=== PATIENT | male | born 1955 | race Hispanic/Latino ===

== ENCOUNTER 2020-09-23 11:28 | Emergency (ER) | payer MEDICARE, SELFPAY ==
--- NOTE | 2020-09-23 12:25 | EDPHYS ---
Physician Documentation [facility] Name: Terrell Hoover Age: 65 yrs Sex: Male : 1955 Arrival Date: 09/23/2020 Time: 11:30 Bed 20 Private MD: ED Physician Ria Bobby HPI: 09/23 12:19 This 65 yrs old Male presents to ER via Ambulatory with complaints of Rash. ma2 12:19 The patient's rash thought to be caused by allergies. The rash can be described as ma2 crusted, erythematous. Onset: The symptoms/episode began/occurred gradually, 6 day(s) ago. Associated signs and symptoms: Pertinent positives: Pertinent negatives: difficulty breathing, fever, nausea. Severity of symptoms: At their worst the symptoms were very mild in the emergency department the symptoms are unchanged. The patient has not experienced similar symptoms in the past. Historical: - Allergies: 11:52 No Known Allergies; jd3 - PMHx: 11:52 Diabetes - IDDM; jd3 - PSHx: 11:52 back; jd3 - Immunization history:: Adult Immunizations up to date. - Social history:: Smoking status: unknown Patient/guardian denies using alcohol, street drugs, The patient lives with family. - Family history:: not pertinent. ROS: 12:23 Constitutional: Negative for fever, chills, and weight loss. ma2 12:23 All other systems are negative. Exam: 12:23 Constitutional: This is a well developed, well nourished patient who is awake, alert, ma2 and in no acute distress. Chest/axilla: Normal chest wall appearance and motion. Nontender with no deformity. No lesions are appreciated. Cardiovascular: Regular rate and rhythm with a normal S1 and S2. No gallops, murmurs, or rubs. Normal PMI, no JVD. No pulse deficits. Respiratory: Lungs have equal breath sounds bilaterally, clear to auscultation and percussion. No rales, rhonchi or wheezes noted. No increased work of breathing, no retractions or nasal flaring. Abdomen/GI: Soft, non-tender, with normal bowel sounds. No distension or tympany. No guarding or rebound. No evidence of tenderness throughout. Skin: diffuse crusting hives with itching, otherwise skin is Warm, dry with normal turgor. Normal color, no evidence of cellulitis. MS/ Extremity: Pulses equal, no cyanosis. Neurovascular intact. Full, normal range of motion. Neuro: Awake and alert, GCS 15, oriented to person, place, time, and situation. Cranial nerves II-XII grossly intact. Motor strength 5/5 in all extremities. Sensory grossly intact. Cerebellar exam normal. Normal gait. Vital Signs: 11:52 BP 120 / 66; Pulse 70; Resp 16 S; Temp 97.4(TE); Pulse Ox 98% on R/A; Weight 77.11 kg jd3 (R); Height 5 ft. 7 in. (170.18 cm) (R); Pain 6/10; 11:52 Body Mass Index 26.63 (77.11 kg, 170.18 cm) jd3 MDM: 12:07 Patient medically screened. ma2 12:23 Differential diagnosis: impetigo, varicella, allergic reaction, parasite infection. ma2 Data reviewed: vital signs, nurses notes. Counseling: I had a detailed discussion with the patient and/or guardian regarding: the historical points, exam findings, and any diagnostic results supporting the discharge/admit diagnosis, the presence of at least one elevated blood pressure reading (>120/80) during this emergency department visit, the need for outpatient follow up. Response to treatment: the patient's symptoms have markedly improved after treatment. Administered Medications: 12:25 Drug: Benadryl (diphenhydrAMINE) 50 mg Route: IM; Site: right deltoid; zb 12:30 Drug: predniSONE 40 mg Route: PO; zb Disposition: 09/23/20 12:24 Discharged to Home. Impression: Rash and other nonspecific skin eruption. - Condition is Stable. - Discharge Instructions: Rash, [id number]. - Prescriptions for Benadryl 25 mg Oral Capsule - take 1 capsule by ORAL route every 6 hours As needed; 30 tablet. Medrol (Familia) 4 mg Oral Tablets, Dose Pack - take 1 tablet by ORAL route as directed - follow package instructions; 1 packet. Pepcid 20 mg Oral Tablet - take 1 tablet by ORAL route once daily; 20 tablet. - Medication Reconciliation Form, Thank You Letter, Antibiotic Education, Prescription Opioid Use form. - Follow up: Private Physician; When: Tomorrow; Reason: Continuance of care. 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 Impression: Rash and other nonspecific skin zb eruption. Condition is Stable. Forms are Medication Reconciliation Form, Thank You Letter, Antibiotic Education, Prescription Opioid Use. Follow up: Private Physician; When: Tomorrow; Reason: Continuance of care. ma2
--- NOTE | 2020-09-23 12:25 | ER ---
Nurse's Notes [facility] Name: Terrell Hoover Age: 65 yrs Sex: Male : 1955 Arrival Date: 09/23/2020 Time: 11:30 Bed 20 Private MD: Diagnosis: Rash and other nonspecific skin eruption Presentation: 09/23 11:51 Chief complaint: Patient states: "I have a rash on my stomach and chest area. I ate jd3 shrimp the other day, but I don't know what is causing this.". Coronavirus screen: At this time, the client does not indicate any symptoms associated with coronavirus-19. Ebola Screen: Patient negative for fever greater than or equal to 101.5 degrees Fahrenheit, and additional compatible Ebola Virus Disease symptoms. Initial Sepsis Screen: Does the patient meet any 2 criteria? No. Patient's initial sepsis screen is negative. Does the patient have a suspected source of infection? No. Patient's initial sepsis screen is negative. Risk Assessment: Do you want to hurt yourself or someone else? Patient reports no desire to harm self or others. Onset of symptoms was September 18, 2020. 11:51 Method Of Arrival: Ambulatory jd3 11:51 Acuity: JORDYN 4 jd3 11:52 Note my doctor called in this cream yesterday, but it has not done anything. jd3 Historical: - Allergies: 11:52 No Known Allergies; jd3 - PMHx: 11:52 Diabetes - IDDM; jd3 - PSHx: 11:52 back; jd3 - Immunization history:: Adult Immunizations up to date. - Social history:: Smoking status: unknown Patient/guardian denies using alcohol, street drugs, The patient lives with family. - Family history:: not pertinent. Screenin:06 Abuse screen: Denies threats or abuse. Denies injuries from another. Nutritional zb screening: No deficits noted. Tuberculosis screening: No symptoms or risk factors identified. Fall Risk None identified. Assessment: 12:11 General: Appears in no apparent distress. Behavior is calm, cooperative, appropriate zb for age. Pain: Complains of pain in back and chest Pain currently is 1 out of 10 on a pain scale. Neuro: Level of Consciousness is awake, alert, obeys commands, Oriented to person, place, time, situation. Cardiovascular: Patient's skin is warm and dry. Respiratory: Airway is patent Respiratory effort is even, unlabored, Respiratory pattern is regular, symmetrical. Derm: Skin is red, Rash noted that is itchy, urticaria, dry. Musculoskeletal: Range of motion: intact in all extremities. 12:33 Reassessment: d/c pending completion of 15 injection time. zb Vital Signs: 11:52 BP 120 / 66; Pulse 70; Resp 16 S; Temp 97.4(TE); Pulse Ox 98% on R/A; Weight 77.11 kg jd3 (R); Height 5 ft. 7 in. (170.18 cm) (R); Pain 6/10; 11:52 Body Mass Index 26.63 (77.11 kg, 170.18 cm) jd3 ED Course: 11:30 Patient arrived in ED. ds1 11:52 Triage completed. jd3 11:53 Arm band placed on. jd3 12:04 Corin hSin, DARELL is Primary Nurse. 12:06 Primary Nurse role handed off by Corin Shin RN zb 12:06 Gely Yusuf RN is Primary Nurse. zb 12:06 Patient has correct armband on for positive identification. Pulse ox on. NIBP on. Door zb closed. Noise minimized. 12:07 Ria Bobby MD is Attending Physician. jordan Administered Medications: 12:25 Drug: Benadryl (diphenhydrAMINE) 50 mg Route: IM; Site: right deltoid; zb 12:30 Drug: predniSONE 40 mg Route: PO; zb Outcome: 12:24 Discharge ordered by . jordan 13:06 Patient left the ED. zb Signatures: Maria Luz Talbert ds1 Corin Shin, Pablo Sutherland RN, RN RN jRia Blandon MD MD ma2 Brown, Zipporah, RN RN zb
[2020-09-23] MEDS ORDERED: DIPHENHYDRAMINE 50 MG/ML VIAL ONE (12:45)
[2020-09-23] MEDS ORDERED: predniSONE 20 MG TAB ONE (12:45)
[2020-09-23 13:13] VITALS: BP 120/66; TEMP 97.4; O2SAT 98
== END 2020-09-23 13:06 | disposition home or self-care (01) ==
LOC: ER 11:28
DX: R21 Rash and other nonspecific skin eruption (principal)
CPT/HCPCS: 96372; 99283; J1200; J7512

== ENCOUNTER 2021-10-03 04:36 | Emergency (ER) | payer MEDICARE ==
--- NOTE | 2021-10-03 06:31 | EDPHYS ---
Physician Documentation [facility] Name: Terrell Hoover Age: 66 yrs Sex: Male : 1955 Arrival Date: 10/03/2021 Time: 04:38 Bed 26 Private MD: ED Physician Jonathan De La Torre Historical: - Allergies: 10/03 04:53 No Known Allergies; bb - Home Meds: 04:53 Metformin Oral [Active]; Lisinopril Oral [Active]; bb - PMHx: 04:53 Diabetes mellitus; bb - PSHx: 04:53 back surgery; bb - Immunization history:: Moderna x 3. - Social history:: Smoking status: Patient denies any tobacco usage or history of. Vital Signs: 04:51 BP 145 / 73; Pulse 80; Resp 18 S; Temp 99.6(O); Pulse Ox 97% on R/A; Weight 85.73 kg bb (R); Height 5 ft. 7 in. (170.18 cm) (R); 06:28 BP 130 / 62; Pulse 74; Resp 18; Pulse Ox 98% on R/A; ll3 04:51 Body Mass Index 29.60 (85.73 kg, 170.18 cm) bb MDM: 06:30 Patient medically screened. kdr 10/03 04:55 Order name: Strep; Complete Time: 06:28 bb 10/03 04:55 Order name: XRAY Chest (1 view) bb 10/03 05:18 Order name: Influenza Screen (A ; Complete Time: 06:28 EDMS 10/03 05:18 Order name: SARS-COV-2 RT PCR; Complete Time: 06:28 EDMS 10/03 06:02 Order name: Throat Culture EDMS Administered Medications: No medications were administered Disposition Summary: 10/03/21 06:30 Discharge Ordered Location: Home kdr Problem: new kdr Symptoms: have improved kdr Condition: Stable kdr Diagnosis - SARS-associated coronavirus as the cause of diseases classified elsewhere kdr Followup: kdr - With: Private Physician - When: 2 - 3 days - Reason: If symptoms return, Further diagnostic work-up, Recheck today's complaints, Continuance of care, Re-evaluation by your physician Discharge Instructions: - Discharge Summary Sheet kdr - Form - Excuse from Work, School, or Physical Activity kdr - COVID-19 kdr - Things to Know about the COVID-19 Pandemic - [facility] kdr - 10 Things You Can Do to Manage Your COVID-19 Symptoms at Home - [facility] kdr - Viral Illness, Adult kdr - COVID-19: Quarantine vs. Isolation - [facility] kdr - Prevent the Spread of COVID-19 if You Are Sick - [facility] kdr Forms: - Medication Reconciliation Form kdr - Thank You Letter kdr Addendum: 10/04/2021 08:06 Addendum: Chief complaint: Sore throat, HPI: Patient complains of a sore throat cough k dr for 2 days. Patient is otherwise healthy. Review of systems: Constitutional: No fever chills or weight loss, eyes: No visual changes or complaints, neck: No pain or injury, cardiovascular: No chest pain or palpitations, she does tire: No shortness of breath, cough or congestion, abdomen: No nausea, vomiting, diarrhea or pain back: No pain or injury, : No pain or bleeding, musculoskeletal/extremities: No pain, injury, swelling or tingling, skin: No lacerations, pain, injury, skin turgor good, logical: Cranial nerves grossly intact and no other deficits noted, psychiatric: Appropriate for age, allergy/immunology: No rashes or other signs or symptoms, Endocrinology: No evidence of polyuria, polydipsia, temperature control issues or other relevant signs and symptoms, exam: Constitutional: Developed well-nourished male in no acute distress, head/face: No injury, pain or deformity, eyes: PERRLA, ENT: No pain, injury or bleeding, mild sore throat, exudate, neck: No pain, injury or deformity, full range of motion, breast/axilla: No pain, injury or deformity, cardiovascular: No rubs, gallops, murmurs, regular rate, respiratory: Clear to auscultation bilaterally, regular rate, abdomen/GI: Soft, nontender, bowel sounds present all quadrants and normal, back: No injury or deformity, full range of motion, musculoskeletal/extremities: No injury or deformity, full range of motion, distal pulses good and equal, skin: No rashes, ecchymosis skin turgor good, neurologic: Cranial nerves grossly intact, no other neurologic deficits noted, psychiatric: Appropriate for age, no SI/HI, no depression decision making, all vital signs and nursing notes reviewed. Patient was counseled on the results of the laboratory tests and need for follow-up. Patient was discharged in stable condition. Patient was happy with the care provided and the plan for discharge and follow-up.. Signatures: Dispatcher [employer] Jonathan Velez MD MD kdr Ballard, Brenda RN RN bb Corrections: (The following items were deleted from the chart) 10/03 04:54 04:53 PMHx: Diabetes - IDDM; bb bb 05:18 04:56 COVID-19/FLU A+B+MOL.LAB.BRZ ordered. EDMS EDMS
--- NOTE | 2021-10-03 06:31 | ER ---
Nurse's Notes [facility] Name: Terrell Hoover Age: 66 yrs Sex: Male : 1955 Arrival Date: 10/03/2021 Time: 04:38 Bed 26 Private MD: Diagnosis: SARS-associated coronavirus as the cause of diseases classified elsewhere Presentation: 10/03 04:51 Chief complaint: Patient states: he has a sore throat and cough for 2 days. Coronavirus bb screen: cough unrelated to allergies, sore throat, Client presents with at least one sign or symptom that may indicate coronavirus-19. Standard/surgical mask placed on the client. Ebola Screen: No symptoms or risks identified at this time. Initial Sepsis Screen: Does the patient meet any 2 criteria? No. Patient's initial sepsis screen is negative. Does the patient have a suspected source of infection? No. Patient's initial sepsis screen is negative. Risk Assessment: Do you want to hurt yourself or someone else? Patient reports no desire to harm self or others. Onset of symptoms was October 01, 2021. 04:51 Method Of Arrival: Ambulatory bb 04:51 Acuity: JORDYN 3 bb Historical: - Allergies: 04:53 No Known Allergies; bb - Home Meds: 04:53 Metformin Oral [Active]; Lisinopril Oral [Active]; bb - PMHx: 04:53 Diabetes mellitus; bb - PSHx: 04:53 back surgery; bb - Immunization history:: Moderna x 3. - Social history:: Smoking status: Patient denies any tobacco usage or history of. Screenin:28 Abuse screen: Denies threats or abuse. Nutritional screening: No deficits noted. ll3 Tuberculosis screening: No symptoms or risk factors identified. Fall Risk None identified. Assessment: 05:15 General: Appears uncomfortable, Behavior is calm, cooperative. Pain: Complains of pain ll3 in left aspect of posterior pharynx and right aspect of posterior pharynx. Neuro: Level of Consciousness is awake, alert, obeys commands, Oriented to person, place, time, situation. Respiratory: Airway is patent Respiratory effort is even, unlabored, Respiratory pattern is regular, symmetrical, Breath sounds are clear bilaterally. Respiratory: Reports cough that is. EENT: Throat is pink. Derm: Skin is pink, warm \T\ dry. 06:27 Reassessment: No changes from previously documented assessment. Patient and/or family ll3 updated on plan of care and expected duration. Pain level reassessed. Patient is alert, oriented x 3, equal unlabored respirations, skin warm/dry/pink. Vital Signs: 04:51 BP 145 / 73; Pulse 80; Resp 18 S; Temp 99.6(O); Pulse Ox 97% on R/A; Weight 85.73 kg bb (R); Height 5 ft. 7 in. (170.18 cm) (R); 06:28 BP 130 / 62; Pulse 74; Resp 18; Pulse Ox 98% on R/A; ll3 04:51 Body Mass Index 29.60 (85.73 kg, 170.18 cm) bb ED Course: 04:38 Patient arrived in ED. bp1 04:53 Triage completed. bb 04:53 Arm band placed on Patient placed in an exam room, on a stretcher, on pulse oximetry. bb Labs ordered per protocol. 05:00 Jonathan De La Torre MD is Attending Physician. kdr 05:09 XRAY Chest (1 view) In Process Unspecified. EDMS 05:56 Malik Jose, DARELL is Primary Nurse. ll3 06:28 Patient has correct armband on for positive identification. Bed in low position. Call ll3 light in reach. Side rails up X 1. 06:28 No provider procedures requiring assistance completed. ll3 06:36 Patient did not have IV access during this emergency room visit. ll3 Administered Medications: No medications were administered Medication: 06:28 VIS not applicable for this client. ll3 Outcome: 06:30 Discharge ordered by . kdr 06:36 Discharged to home ambulatory. ll3 06:36 Condition: stable 06:36 Discharge instructions given to patient, Instructed on discharge instructions, follow up and referral plans. Demonstrated understanding of instructions, follow-up care. 06:37 Patient left the ED. ll3 Signatures: Dispatcher [employer] EDMS Jonathan De La Torre MD MD kdr Ballard, Brenda, RN RN bb [place] Winn bp1 Malik Jose RN RN ll3 Corrections: (The following items were deleted from the chart) 04:54 04:53 PMHx: Diabetes - IDDM; bb bb
[2021-10-03 06:44] VITALS: TEMP 99.6
[2021-10-03 06:46] VITALS: BP 130/62; O2SAT 98
--- NOTE | 2021-10-03 11:56 | RAD REPORT ---
EXAM DESCRIPTION: RAD - Chest Single View - 10/03/2021 5:08 am CLINICAL HISTORY: The patient is 66 years old and is Male; COUGH TECHNIQUE: Frontal view of the chest. COMPARISON: No relevant prior studies available. FINDINGS: Lungs: Mildly prominent interstitial and vascular markings. No consolidation. Pleural space: Unremarkable. No pneumothorax. Heart: Unremarkable. Mediastinum: Unremarkable. Bones/joints: Unremarkable. IMPRESSION: Mildly prominent interstitial and vascular markings. No consolidation. Electronically signed by: Surjit Donohue MD 10/03/2021 5:22 AM CDT Due to temporary technical issues with the PACS/Fluency reporting system, reports are being signed by the in house radiologists without. review as a courtesy to insure prompt reporting. The interpreting radiologist is fully responsible for the content of the report
== END 2021-10-03 06:37 | disposition home or self-care (01) ==
LOC: ER 04:36
DX: U07.1 COVID-19 (principal); E11.8 Type 2 diabetes mellitus with unspecified complications
CPT/HCPCS: 87070; 87081; 87804 ×2; 71045; 99283; U0003

== ENCOUNTER 2022-06-04 21:35 | Emergency (ER) | payer MEDICARE ==
--- OUTSIDE RECORDS SUMMARY | 2022-06-04 21:38 | XMS REPORT | Continuity of Care Document ---
:1955 Author Organization [facility] t Address [address] [facility] [address] [place] [address] Care Team Providers Name Role Phone Unavailable Unavailable Unavailable Problems This patient has no known problems. Allergies, Adverse Reactions, Alerts This patient has no known allergies or adverse reactions. Medications This patient has no known medications. Procedures This patient has no known procedures. Encounters Start End Encounter Admission Attending Care Care Encounter Source Date/Time Date/Time Type Type Clinicians Facility Department ID 2022-05-10 2022-05-10 Outpatient [facility] [id number] Kwame 11:40:40 11:40:40 [id number] F Thomas 2022-02-07 2022-02-07 Outpatient [facility] [id number] Kwame 11:37:15 11:37:15 [id number] F Thomas 2022-01-27 2022-01-27 Outpatient [facility] [id number] Kwame 17:18:49 17:18:49 [id number] F Thomas 2022-01-20 2022-01-20 Outpatient [facility] [id number] Kwame 08:24:12 08:24:12 [id number] F Thomas Results Test Description Test Time Test Comments Results Result Comments Source COMPREHENSIVE METABOLIC PANEL 2022-05-12 04:25:35 Test Item Value Reference Range Interpretation Comme nts GLUCOSE (test code = 2217) 70 MG/DL 70-99 BUN (test code = 2208) 17 MG/DL 8-23 CREATININE (test code = 0.73 MG/DL 0.80-1.40 L 2213) eGFR (2020 CKD-EPI) (test 100 ML/MIN/1.73 >60 code = 59903) CALC BUN/CREAT (test code = 23 RATIO 6-28 2234) SODIUM (test code = 2231) 139 MEQ/L 133-146 POTASSIUM (test code = 2228) 5.1 MEQ/L 3.5-5.4 CHLORIDE (test code = 2215) 103 MEQ/L 95-107 CARBON DIOXIDE (test code = 20 MEQ/L 2205) CALCIUM (test code = 2209) 9.9 MG/DL 8.5-10.5 PROTEIN, TOTAL (test code = 7.8 G/DL 6.1-8.3 2228) ALBUMIN (test code = 2201) 4.9 G/DL 3.5-5.2 CALC GLOBULIN (test code = 2.9 G/DL 1.9-3.7 2239) CALC A/G RATIO (test code = 1.7 RATIO 1.0-2.6 2233) BILIRUBIN, TOTAL (test code 0.5 MG/DL See_Comment [Automated message] The = 2206) system which ge nerated this result transmit radha reference range : <=1.2. The reference range was not used to interpr et this result as kevin l/abnormal. ALKALINE PHOSPHATASE (test 61 U/L 40-125 code = 2204) AST (test code = 2218) 22 U/L 9-50 ALT (test code = 2219) 26 U/L 5-50 LIPID [id number] 04:25:35 Test Item Value Reference Range Interpretation Comments CHOLESTEROL (test 158 MG/DL <200 code = 2210) TRIGLYCERIDES (test 77 MG/DL <150 code = 2232) HDL CHOLESTEROL (test 53 MG/DL >39 code = 2220) CALC LDL CHOL (test 88 MG/DL <100 NOTE: C ALCULATED LDL code = 2237) IS BASED ON HALI-SHIRLEY METHOD WHICHINCLUDES ADJUSTABLE TRIGLYCERIDE:VL DL CHOLESTEROL RAT IO.THIS FACTOR VARIES B Y MEASURED TRIGLY CERIDE AND NON-HDLCHOL ESTEROL CONCENTRATIONS WITH INCREASED CALCU LATED LDL SEENIN HIGH ER TRIGLYCERIDE OR LOWER NON-HDL SPECIME NS. FOR MOREINFORMATION , SEE CLIENT ANNOUNCE MENT AT [email or web address] [email or web address] LDL/HDL 1.66 RATIO <3.55 [facility] has important (test code = 2238) pathology staff changes effecti ve 06/04/2022. New pathology staff will provide uninter rupted, excellent patie nt care and clinical consultation. S ee URL: [email or web address]. UNLES S OTHERWISE INDIC ATED, ALL TESTING PER FORMED AT CL[facility]ICAL [facility], I [place]. [address] [place] [address] CLIA: [id number], CAP: HEMOGLOBIN [id number] 03:06:51 Test Item Value Reference Range Interpretation Comments HEMOGLOBIN A1c (test 8.4 % 4.2-5.6 H AMERIC AN DIABETES code = 05642) ASSOCIATION IDELINES FOR HGB A1C: PREDIABETES/INC REASED RISK . . . . . . . 5.7 -6.4% DIAGNOSIS OF DI ABETES . . . . . . . . . >=6 .5% WITH CONFIRMATION OR APPROPRIATE SYMPTOMS NOTE: ASSAY MAY BE AFFECTED BY HEMOGLOBINOPATH IES (SICKLE CELL ANEMIA, S- C DISEASE, OTHERS) OR SARATH FICIALLY LOWERED BY DECR EASED RED CELL SURVIVAL ( HEMOLYTIC ANEMIAS, BLOOD LOSS, ETC.). CONSIDER ALTERN ATE TESTING OR LABORATORY C ONSULTATION. HEMOGLOBIN [id number] 05:14:47 Test Item Value Reference Range Interpretation Comments HEMOGLOBIN A1c (test 8.0 % 4.2-5.6 H AMERIC AN DIABETES code = 30204) ASSOCIATION IDELINES FOR HGB A1C: PREDIABETES/INC REASED RISK . . . . . . . 5.7 -6.4% DIAGNOSIS OF DI ABETES . . . . . . . . . >=6 .5% WITH CONFIRMATION OR APPROPRIATE SYMPTOMS NOTE: ASSAY MAY BE AFFECTED BY HEMOGLOBINOPATH IES (SICKLE CELL ANEMIA, S- C DISEASE, OTHERS) OR SARATH FICIALLY LOWERED BY DECR EASED RED CELL SURVIVAL ( HEMOLYTIC ANEMIAS, BLOOD LOSS, ETC.). CONSIDER ALTERN ATE TESTING OR LABORATORY C ONSULTATION. UNLESS OTHERWIS E INDICATED, ALL TESTING PER FORMED ATCLINICAL PATH [facility], I [place]. [address] [place] [address] LABORATORY DIRE CTOR: EV LYNN M.D. CLIA NUMBER [id number] [place]. [id number] ALBUMIN/CREATININE RATIO, URINE, [id number] 04:17:25 Test Item Value Reference Range Interpretation Comments CREATININE, URINE, 255.5 MG/DL NOT ESTAB RANDOM (test code = 2072) ALBUMIN, URINE, 2.7 MG/DL NOT ESTAB RANDOM (test code = 37070) CALC ALBUMIN/CREAT, 11 MG/G <30 Note: RND (test code = Albumin/Cre atinine 97130) ratio reference interval reflec ts ADA and NKF guideli no. HEMOGLOBIN [id number] 09:49:57 Test Item Value Reference Range Interpretation Comments HEMOGLOBIN A1c (test 7.6 % 4.2-5.6 H AMERIC AN DIABETES code = 76270) ASSOCIATION IDELINES FOR HGB A1C: PREDIABETES/INC REASED RISK . . . . . . . 5.7 -6.4% DIAGNOSIS OF DI ABETES . . . . . . . . . >=6 .5% WITH CONFIRMATION OR APPROPRIATE SYMPTOMS NOTE: ASSAY MAY BE AFFECTED BY HEMOGLOBINOPATH IES (SICKLE CELL ANEMIA, S- C DISEASE, OTHERS) OR SARATH FICIALLY LOWERED BY DECR EASED RED CELL SURVIVAL ( HEMOLYTIC ANEMIAS, BLOOD LOSS, ETC.). CONSIDER ALTERN ATE TESTING OR LABORATORY C ONSULTATION. COMPREHENSIVE METABOLIC [id number] 04:03:56 Test Item Value Reference Range Interpretation Comments GLUCOSE (test code = 149 MG/DL 70-99 H 2216) BUN (test code = 23 MG/DL 8-23 2207) CREATININE (test 0.78 MG/DL 0.80-1.40 L code = 2214) eGFR (2020 CKD-EPI) 98 ML/MIN/1.73 >60 (test code = 02805) CALC BUN/CREAT (test 29 RATIO 6-28 H code = 2235) SODIUM (test code = 140 MEQ/L 006-460 8076) POTASSIUM (test code 4.1 MEQ/L 3.5-5.4 = 2227) CHLORIDE (test code 103 MEQ/L 95-107 = 2215) CARBON DIOXIDE (test 23 MEQ/L 19-31 code = 2206) CALCIUM (test code = 9.6 MG/DL 8.5-10.5 2208) PROTEIN, TOTAL (test 7.1 G/DL 6.1-8.3 code = 222) ALBUMIN (test code = 4.4 G/DL 3.5-5.2 2200) CALC GLOBULIN (test 2.7 G/DL 1.9-3.7 code = 2240) CALC A/G RATIO (test 1.6 RATIO 1.0-2.6 code = 2234) BILIRUBIN, TOTAL 0.5 MG/DL See_Comment [Automated message] (test code = 2207) The syste m which generated this result transmit radha reference range : <=1.2. The refe rence range was not u sed to interpret th is result as normal/abnormal . ALKALINE PHOSPHATASE 50 U/L 40-125 (test code = 2203) AST (test code = 20 U/L 9-50 2217) ALT (test code = 24 U/L 5-50 2218) LIPID [id number] 04:03:56 Test Item Value Reference Range Interpretation Comments CHOLESTEROL (test 149 MG/DL <200 code = 2210) TRIGLYCERIDES (test 137 MG/DL <150 code = 2232) HDL CHOLESTEROL (test 47 MG/DL >39 code = 2220) CALC LDL CHOL (test 78 MG/DL <100 NOTE: C ALCULATED LDL code = 2237) IS BASED ON HALI-SHIRLEY METHOD WHICHINCLUDES ADJUSTABLE TRIGLYCERIDE:VL DL CHOLESTEROL RAT IO.THIS FACTOR VARIES B Y MEASURED TRIGLY CERIDE AND NON-HDLCHOL ESTEROL CONCENTRATIONS WITH INCREASED CALCU LATED LDL SEENIN HIGH ER TRIGLYCERIDE OR LOWER NON-HDL SPECIME NS. FOR MOREINFORMATION , SEE CLIENT ANNOUNCE MENT AT [email or web address] LDL/HDL 1.66 RATIO <3.55 UNLESS O THERWISE (test code = 2238) INDICATED , ALL TESTING PERFORMED [facility], [facility]. [address] [place] [address] [facility] DIRECTOR: EV LYNN M.D. CLIA NUMBER [id number] CAP ACCREDITATION N O. [id number]
[2022-06-04 22:04] LABS: Urine Blood Negative (Negative); Urine Glucose 2+ (Negative); Urine Protein Negative (Negative); Urine Specific Gravity 1.025 (1.005-1.030)
[2022-06-04] MEDS ORDERED: FAMOTIDINE 20 MG/2 ML VIAL IV ONE (22:34)
[2022-06-04] MEDS ORDERED: NA CHLORIDE 0.9% 1,000 ML ONE (22:34)
[2022-06-04] MEDS ORDERED: ONDANSETRON 4 MG/2 ML VIAL ONE (22:34)
[2022-06-04] MEDS ORDERED: MORPHINE 4 MG/ML SYR ONE (22:34)
[2022-06-04 23:02] LABS: Albumin 4.1 g/dL (3.4-5.0); Bilirubin Total 0.6 mg/dL (0.2-1.0); Potassium 4.6 mmol/L (3.5-5.1); Protein, Total 8.1 g/dL (6.4-8.2)
[2022-06-04 23:04] LABS: Hematocrit 42.5 % (39.6-49.0); Lymphocytes % 31.5 % (15.3-44.8); MCV 89.2 fL (80-100); MPV 8.8 fL (7.6-11.3); RBC Red Blood Cell Count 4.77 M/uL (4.33-5.43)
--- NOTE | 2022-06-05 00:10 | ER ---
Nurse's Notes [facility] Name: Terrell Hoover Age: 67 yrs Sex: Male : 1955 Arrival Date: 06/04/2022 Time: 21:40 Bed 15 Private MD: Diagnosis: Other cholelithiasis without obstruction Presentation: 06/04 21:58 Chief complaint: Patient states: abdominal pain and nausea starting around 1900. denies lg3 vomiting and diarrhea. Coronavirus screen: Client denies travel out of the [place] in the last 14 days. At this time, the client does not indicate any symptoms associated with coronavirus-19. Ebola Screen: No symptoms or risks identified at this time. Initial Sepsis Screen: Does the patient meet any 2 criteria? No. Patient's initial sepsis screen is negative. Does the patient have a suspected source of infection? No. Patient's initial sepsis screen is negative. Risk Assessment: Do you want to hurt yourself or someone else? Patient reports no desire to harm self or others. Onset of symptoms was June 04, 2022. 21:58 Method Of Arrival: Ambulatory lg3 21:58 Acuity: JORDYN 3 lg3 Triage Assessment: 22:00 General: Appears in no apparent distress. uncomfortable, Behavior is calm, cooperative. lg3 Pain: Complains of pain in abdomen Pain does not radiate. EENT: No deficits noted. No signs and/or symptoms were reported regarding the EENT system. Neuro: No deficits noted. Serna Agitation-Sedation Scale (RASS): 0 - Alert and Calm Level of Consciousness is awake, alert, obeys commands, Oriented to person, place, time, situation. Cardiovascular: No deficits noted. Denies chest pain, shortness of breath, Capillary refill < 3 seconds Clubbing of nail beds is absent JVD is absent Patient's skin is warm and dry. Respiratory: No deficits noted. Airway is patent Trachea midline Respiratory effort is even, unlabored, Respiratory pattern is regular, symmetrical. GI: Abdomen is flat, non-distended, Bowel sounds present X 4 quads. Abd is soft X 4 quads Abdomen is tender to palpation Reports lower abdominal pain, upper abdominal pain, nausea. : No deficits noted. No signs and/or symptoms were reported regarding the genitourinary system. Derm: No deficits noted. No signs and/or symptoms reported regarding the dermatologic system. Skin is intact, is healthy with good turgor, Skin is dry, Skin is normal. Musculoskeletal: No deficits noted. No signs and/or symptoms reported regarding the musculoskeletal system. Circulation, motion, and sensation intact. Range of motion: intact in all extremities. Historical: - Allergies: 22:00 No Known Allergies; lg3 - Home Meds: 22:00 lisinopril Oral [Active]; metformin 1,000 mg oral tab 1 tab 2 times per day [Active]; lg3 - PMHx: 22:00 diabetes mellitus; lg3 - PSHx: 22:00 back surgery; lg3 - Immunization history:: Adult Immunizations up to date, Client reports receiving the 2nd dose of the Covid vaccine. - Social history:: Smoking status: Patient denies any tobacco usage or history of. Patient/guardian denies using alcohol, street drugs. Screenin:04 [facility] ED Fall Risk Assessment (Adult) History of falling in the last 3 months, lg3 including since admission No falls in past 3 months (0 pts). Abuse screen: Denies threats or abuse. Denies injuries from another. Nutritional screening: No deficits noted. Tuberculosis screening: No symptoms or risk factors identified. Assessment: 22:03 General: see triage assessment . lg3 22:58 Reassessment: Patient appears in no apparent distress at this time. No changes from lg3 previously documented assessment. Patient and/or family updated on plan of care and expected duration. Pain level reassessed. Patient is alert, oriented x 3, equal unlabored respirations, skin warm/dry/pink. Patient states symptoms have improved. 23:59 Reassessment: Patient appears in no apparent distress at this time. No changes from lg3 previously documented assessment. Patient and/or family updated on plan of care and expected duration. Pain level reassessed. Patient is alert, oriented x 3, equal unlabored respirations, skin warm/dry/pink. Patient states feeling better. Vital Signs: 21:58 BP 171 / 85; Pulse 68; Resp 17 S; Temp 98.2(O); Pulse Ox 98% on R/A; Weight 84.37 kg lg3 (R); Height 5 ft. 7 in. (170.18 cm) (R); Pain 9/10; 23:59 BP 160 / 76; Pulse 57; Resp 17; Pulse Ox 99% on R/A; lg3 21:58 Body Mass Index 29.13 (84.37 kg, 170.18 cm) lg3 ED Course: 21:40 Patient arrived in ED. ag3 21:52 Alejandro Dover MD is Attending Physician. rt 21:58 Karla Shen, RN is Primary Nurse. lg3 22:00 Triage completed. lg3 22:00 Arm band placed on right wrist. lg3 22:03 Matt Wei NP is PHCP. pm1 22:04 Patient has correct armband on for positive identification. Placed in gown. Bed in low lg3 position. Call light in reach. Side rails up X 1. Client placed on continuous cardiac and pulse oximetry monitoring. NIBP monitoring applied. Door closed. Noise minimized. Warm blanket given. Family accompanied patient. 22:32 CBC with Diff Sent. lg3 22:32 CMP Sent. lg3 22:32 Lipase Sent. lg3 22:32 Inserted saline lock: 20 gauge in right antecubital area, using aseptic technique. lg3 Blood collected. 23:30 CT Abd/Pelvis - IV Contrast Only In Process Unspecified. EDMS 03/02 00:32 No provider procedures requiring assistance completed. lg3 00:32 IV discontinued, intact, bleeding controlled, No redness/swelling at site. Pressure lg3 dressing applied. 00:34 Primary Nurse role handed off by Karla Shen, RN lg3 Administered Medications: 06/04 22:38 Drug: morphine 4 mg Route: IVP; Infused Over: 4 mins; Site: right antecubital; lg3 06/05 00:01 Follow up: Response: No adverse reaction; Marked relief of symptoms; Pain is decreased lg3 06/04 22:38 Drug: Zofran (Ondansetron) 4 mg Route: IVP; Site: right antecubital; lg3 06/05 00:00 Follow up: Response: No adverse reaction; Marked relief of symptoms; Nausea is decreasedlg3 06/04 22:38 Drug: Pepcid (famotidine) 20 mg Route: IVP; Site: right antecubital; lg3 06/05 00:00 Follow up: Response: No adverse reaction lg3 06/04 22:38 Drug: NS 0.9% 1000 ml Route: IV; Rate: 1000 ml; Site: right antecubital; lg3 23:57 Follow up: Response: No adverse reaction; IV Status: Completed infusion; IV Intake: ll3 1000ml 06/05 00:31 Drug: Bentyl (dicyclomine) 20 mg Route: IM; Site: right deltoid; lg3 00:32 Follow up: Response: No adverse reaction lg3 Medication: 00:32 VIS not applicable for this client. lg3 Intake: 06/04 23:57 IV: 1000ml; Total: 1000ml. ll3 Outcome: 06/05 00:09 Discharge ordered by . pm1 00:32 Discharged to home ambulatory, with significant other. lg3 00:32 Condition: stable 00:32 Discharge instructions given to patient, significant other, Instructed on discharge instructions, follow up and referral plans. medication usage, Demonstrated understanding of instructions, follow-up care, medications, Prescriptions given X 2. 00:33 Patient left the ED. lg3 00:45 Patient left the ED. lg3 Signatures: Dispatcher [employer] EDCO Matt Wei, [employer] REP pm1 Krysten Mora 3 Karla Shen, RN RN lg3 Malik Jose RN RN ll3 Alejandro Dover MD MD rt
--- NOTE | 2022-06-05 00:10 | EDPHYS ---
Physician Documentation [facility] Name: Terrell Hoover Age: 67 yrs Sex: Male : 1955 Arrival Date: 06/04/2022 Time: 21:40 Bed 15 Private MD: ED Physician Alejandro Dover HPI: 06/04 23:08 This 67 yrs old Male presents to ER via Ambulatory with complaints of pm1 Abdominal Pain. 23:08 The patient presents with abdominal pain in the upper abdomen. Onset: The pm1 symptoms/episode began/occurred today, at 19:00. The symptoms do not radiate. 23:08 Associated signs and symptoms: Pertinent positives: nausea, Pertinent negatives: chest pm1 pain, diarrhea, shortness of breath, vomiting. The symptoms are described as sharp, bloated. Modifying factors: The symptoms are alleviated by nothing, the symptoms are aggravated by food, patient ate taco one hour prior to onset of symptoms. Severity of pain: in the emergency department the pain is actually worse. The patient has not experienced similar symptoms in the past. The patient has not recently seen a physician. Historical: - Allergies: 22:00 No Known Allergies; lg3 - Home Meds: 22:00 lisinopril Oral [Active]; metformin 1,000 mg oral tab 1 tab 2 times per day [Active]; lg3 - PMHx: 22:00 diabetes mellitus; lg3 - PSHx: 22:00 back surgery; lg3 - Immunization history:: Adult Immunizations up to date, Client reports receiving the 2nd dose of the Covid vaccine. - Social history:: Smoking status: Patient denies any tobacco usage or history of. Patient/guardian denies using alcohol, street drugs. ROS: 23:08 Constitutional: Negative for fever, chills, and weight loss. pm1 23:08 Cardiovascular: Negative for chest pain, palpitations, and edema, Respiratory: Negative for shortness of breath, cough, wheezing, and pleuritic chest pain. 23:08 Back: Negative for injury and pain, MS/Extremity: Negative for injury and deformity, Skin: Negative for injury, rash, and discoloration, Neuro: Negative for headache, weakness, numbness, tingling, and seizure. 23:08 Abdomen/GI: Positive for abdominal pain, nausea, Negative for vomiting, diarrhea. 23:08 All other systems are negative. Exam: 23:08 Constitutional: This is a well developed, well nourished patient who is awake, alert, pm1 and in no acute distress. Head/Face: Normocephalic, atraumatic. 23:08 Back: No spinal tenderness. No costovertebral tenderness. Full range of motion. Skin: Warm, dry with normal turgor. Normal color with no rashes, no lesions, and no evidence of cellulitis. MS/ Extremity: Pulses equal, no cyanosis. Neurovascular intact. Full, normal range of motion. 23:08 Cardiovascular: Exam negative for acute changes, Rate: normal, Rhythm: regular, Pulses: no pulse deficits are appreciated, Heart sounds: normal, normal S1and S2. 23:08 Respiratory: Exam negative for acute changes, respiratory distress, shortness of breath. 23:08 Abdomen/GI: Inspection: abdomen appears normal, Palpation: soft, in all quadrants, moderate abdominal tenderness, in the epigastric area. 23:08 Neuro: Exam negative for acute changes, Orientation: is normal, Mentation: is normal, Motor: is normal, moves all fours. Vital Signs: 21:58 BP 171 / 85; Pulse 68; Resp 17 S; Temp 98.2(O); Pulse Ox 98% on R/A; Weight 84.37 kg lg3 (R); Height 5 ft. 7 in. (170.18 cm) (R); Pain 9/10; 23:59 BP 160 / 76; Pulse 57; Resp 17; Pulse Ox 99% on R/A; lg3 21:58 Body Mass Index 29.13 (84.37 kg, 170.18 cm) lg3 MDM: 21:53 Patient medically screened. rt 23:03 Care significantly affected by the following chronic conditions: Diabetes. pm1 23:10 Data reviewed: vital signs. pm1 23:10 Differential diagnosis: cholecystitis, Cholelithiasis, gastritis, gastroesophageal pm1 reflux disease, non-specific abd pain. 02 00:09 Counseling: I had a detailed discussion with the patient and/or guardian regarding: the pm1 historical points, exam findings, and any diagnostic results supporting the discharge/admit diagnosis, lab results, radiology results, the need for outpatient follow up, a general surgeon, to return to the emergency department if symptoms worsen or persist or if there are any questions or concerns that arise at home. 00:16 ED course: Patient reports marked improvement in pain after some pain still present. pm1 Will give the patient Bentyl IM prior to discharge. Patient wants to return to work tomorrow and refused narcotic pain medication for discharge. 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 Instructed patient on low-fat diet and follow-up with general surgery. 06/04 22:04 Order name: Urine Dipstick-Ancillary; Complete Time: 22:08 EDMS 06/04 22:09 Order name: CBC with Diff pm1 06/04 22:09 Order name: CMP pm1 06/04 22:09 Order name: Lipase pm1 06/04 22:09 Order name: CT Abd/Pelvis - IV Contrast Only pm1 06/04 22:09 Order name: IV Saline Lock; Complete Time: 22:32 pm1 06/04 22:09 Order name: Labs collected and sent; Complete Time: 22:32 pm1 06/04 23:02 Order name: Comprehensive Metabolic Panel; Complete Time: 23:03 EDMS 06/04 23:02 Order name: Lipase; Complete Time: 23:03 EDMS 06/04 23:09 Order name: CBC with Automated Diff; Complete Time: 23:19 EDMS Administered Medications: 06/04 22:38 Drug: morphine 4 mg Route: IVP; Infused Over: 4 mins; Site: right antecubital; lg3 06/05 00:01 Follow up: Response: No adverse reaction; Marked relief of symptoms; Pain is decreased lg3 06/04 22:38 Drug: Zofran (Ondansetron) 4 mg Route: IVP; Site: right antecubital; lg3 06/05 00:00 Follow up: Response: No adverse reaction; Marked relief of symptoms; Nausea is decreasedlg3 06/04 22:38 Drug: Pepcid (famotidine) 20 mg Route: IVP; Site: right antecubital; lg3 06/05 00:00 Follow up: Response: No adverse reaction lg3 06/04 22:38 Drug: NS 0.9% 1000 ml Route: IV; Rate: 1000 ml; Site: right antecubital; lg3 23:57 Follow up: Response: No adverse reaction; IV Status: Completed infusion; IV Intake: ll3 1000ml 06/05 00:31 Drug: Bentyl (dicyclomine) 20 mg Route: IM; Site: right deltoid; lg3 00:32 Follow up: Response: No adverse reaction lg3 Disposition: 00:32 Co-signature as Attending Physician, Alejandro Dover MD I reviewed the patient's care rt provided by the Advanced Practice Provider and agree with the diagnosis and treatment plan. Disposition Summary: 06/05/22 00:09 Discharge Ordered Location: Home pm1 Problem: new pm1 Symptoms: have improved pm1 Condition: Stable pm1 Diagnosis - Other cholelithiasis without obstruction pm1 Followup: pm1 - With: Emergency Department - When: As needed - Reason: Worsening of condition Followup: pm1 - With: Private Physician - When: 2 - 3 days - Reason: Recheck today's complaints, Continuance of care, Re-evaluation by your physician Discharge Instructions: - Discharge Summary Sheet pm1 - Cholelithiasis pm1 Forms: - Medication Reconciliation Form pm1 - Thank You Letter pm1 - Antibiotic Education pm1 - Prescription Opioid Use pm1 Prescriptions: - dicyclomine 20 mg Oral Tablet - take 1 tablet by ORAL route 4 times per day As needed; 20 tablet; Refills: 0, pm1 Product Selection Permitted - ondansetron 4 mg Oral - take 4 milligrams by SUBLINGUAL route every 8 hours; 15 tablet; Refills: 0, pm1 Product Selection Permitted Signatures: Dispatcher [employer] Matt Cuello NP COMPUTER TECHNOLOGY TRAINER pm1 Karla Shen RN RN lg3 Alejandro Dover MD MD rt Malik Jose RN ll3
[2022-06-05] MEDS ORDERED: DICYCLOMINE HCL 20 MG/2 ML AMP IM ONE (00:29)
[2022-06-05 01:06] VITALS: TEMP 98.2
[2022-06-05 01:20] VITALS: BP 160/76; O2SAT 99
--- NOTE | 2022-06-05 15:31 | RAD REPORT ---
EXAM DESCRIPTION: CT - Abdomen Pelvis W Contrast - 06/05/2022 6:36 am CLINICAL HISTORY: Male, 67 years old, abdominal pain and nausea COMPARISON: None. TECHNIQUE: CT acquisition of the abdomen and pelvis following the administration of IV contrast. Cor onal and sagittal reformatted images provided. This exam was performed according to departmental dose -optimization program which includes automated exposure control, adjustment of the mA and/or kV accor ding to patient size, and/or use of iterative reconstruction technique. FINDINGS: SUPPORTIVE DEVICES: None. LOWER CHEST: Mild basilar scarring/atelectasis. 5 mm nodule in the subpleural right posterior costop hrenic angle. Normal heart size with aortic annular calcification. Imaged heart is normal. ABDOMEN AND PELVIS: Liver: Normal. Gallbladder and bile ducts: Layering stones within the gallbladder lumen without evidence of wall thi ckening or pericholecystic fluid. No evident intra- or extrahepatic biliary ductal dilation. Pancreas: Normal. Spleen: Normal. Adrenal glands: Normal. Kidneys and ureters: Normal. Bladder: Normal. Reproductive organs: Borderline prostatomegaly with central calcification. GI tract: Normal caliber without wall thickening. Normal appendix. Lymph nodes: No evident adenopathy. Peritoneum: No evidence of ascites, fluid collection, or free air. Abdominal wall: Small inguinal hernias versus lipomas. Vessels: Atherosclerosis without evidence of aneurysm. MUSCULOSKELETAL: No acute osseous abnormality. Degenerative change of the spine and pelvis. Degenera tive grade 1 anterolisthesis of L4-L5. IMPRESSION: 1. Cholelithiasis without CT findings of cholecystitis. Correlate with hepatic enzymes and physical exam. If there is persistent clinical concern, either quadrant ultrasound may be consid ered. 2. Incidental small nodule within the right lung base, optional twelve-month follow-up chest CT if patient is considered high risk. 3. Additional chronic and incidental findings above. Electronically signed by: Timmy Patel MD 06/04/2022 11:43 PM [employer] Due to temporary technical issues with the PACS/Fluency reporting system, reports are being signed by the in house radiologists without review as a courtesy to insure prompt reporting. The interpreting radiologist is fully responsible for the content of the report.
== END 2022-06-05 00:45 | disposition home or self-care (01) ==
LOC: ER 21:35
DX: K80.80 Other cholelithiasis without obstruction (principal); E11.9 Type 2 diabetes mellitus without complications
CPT/HCPCS: 96361; 85025; 36415; 81003; 83690; 80053; 74177; 96375; 96372; 96374; 99284; Q9967; J0500; J7030; J2405

== ENCOUNTER 2024-05-27 09:00 | Emergency (ER) | payer MEDICARE, OTHER ==
--- OUTSIDE RECORDS SUMMARY | 2024-05-27 09:06 | XMS REPORT | Continuity of Care Document ---
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 9.2 MG/DL 8.5-10.5 PROTEIN, TOTAL (test code = 2228) 7.0 G/DL 6.1-8.3 ALBUMIN (test code = 2200) 4.5 G/DL 3.5-5.2 CALC GLOBULIN (test code = 2239) 2.5 G/DL 1.9-3.7 CALC A/G RATIO (test code = 2233) 1.8 RATIO 1.0-2.6 BILIRUBIN, TOTAL (test code = 2206) 0.9 MG/DL <=1.2 ALKALINE PHOSPHATASE (test code = 2203) 52 U/L 40-125 AST (test code = 2217) 19 U/L 9-50 ALT (test code = 221) 21 U/L 5-50 LIPID [id number] 03:48:42* Test Item Value Reference Range Interpretation Comme nts CHOLESTEROL (test code = 2209) 134 MG/DL <200 TRIGLYCERIDES (test code = 2232) 71 MG/DL <150 HDL CHOLESTEROL (test code = 2220) 50 MG/DL >39 CALC LDL CHOL (test code = 2236) 69 MG/DL <100 NOTE: CALCULATED LDL IS BASED ON HALI-SHIRLEY METHOD WHICHINCLUDES ADJUSTABLE TRIGLYCERIDE:VLDL CHOLESTEROL RATIO.THIS FACTOR VARIES BY MEASURED TRIGLYCERIDE AND NON-HDLCHOLESTEROL CONCENTRATIONS WITH INCREASED CALCULATED LDL SEENIN HIGHER TRIGLYCERIDE OR LOWER NON-HDL SPECIMENS. FOR MOREINFORMATION, SEE CLIENT ANNOUNCEMENT AT [email or web address] [email or web address] RATIO LDL/HDL (test code = 2238) 1.38 RATIO <3.55 HEMOGLOBIN [id number] 03:30:53* Test Item Value Reference Range Interpretation Comme [facility] HEMOGLOBIN A1c (test code = 28152) 7.5 % 4.2-5.6 H [employer] GUIDELINES FOR HGB A1C: PREDIABETES/INCREASED RISK . . . . . . . 5.7-6.4% DIAGNOSIS OF DIABETES . . . . . . . . . >=6.5% WITH CONFIRMATION OR APPROPRIATE SYMPTOMS NOTE: ASSAY MAY BE AFFECTED BY HEMOGLOBINOPATHIES (SICKLE CELL ANEMIA, S-C DISEASE, OTHERS) OR ARTIFICIALLY LOWERED BY DECREASED RED CELL SURVIVAL (HEMOLYTIC ANEMIAS, BLOOD LOSS, ETC.). CONSIDER ALTERNATE TESTING OR LABORATORY CONSULTATION. UNLESS OTHERWISE INDICATED, ALL TESTING PERFORMED AT [facility] [address] [place] [address] HOME HEALTH CLINICAL LIAISON: TREY RIDDLE M.D. [facility] NUMBER [id number] [facility] [place]. [id number] COMPREHENSIVE METABOLIC [id number] 00:00:00* Test Item Value Reference Range Interpretation Comme nts GLUCOSE (test code = 2217) 115 MG/DL BUN (test code = 2208) 18 MG/DL CREATININE (test code = 2214) 0.69 MG/DL eGFR (2020 CKD-EPI) (test code = 91393) 101 ML/MIN/1.73 CALC BUN/CREAT (test code = 2235) 26 RATIO SODIUM (test code = 2231) 140 MEQ/L POTASSIUM (test code = 2228) 4.2 MEQ/L CHLORIDE (test code = 2215) 104 MEQ/L CARBON DIOXIDE (test code = 2206) 21 MEQ/L CALCIUM (test code = 2209) 9.2 MG/DL PROTEIN, TOTAL (test code = 2229) 7.0 G/DL ALBUMIN (test code = 2201) 4.5 G/DL CALC GLOBULIN (test code = 2240) 2.5 G/DL CALC A/G RATIO (test code = 2234) 1.8 RATIO BILIRUBIN, TOTAL (test code = 2207) 0.9 MG/DL ALKALINE PHOSPHATASE (test code = 2204) 52 U/L AST (test code = 2218) 19 U/L ALT (test code = 2219) 21 U/L Kwame Reza AustinLIPID [id number] 00:00:00* Test Item Value Reference Range Interpretation Comme nts CHOLESTEROL (test code = 2210) 134 MG/DL TRIGLYCERIDES (test code = 2232) 71 MG/DL HDL CHOLESTEROL (test code = 2220) 50 MG/DL CALC LDL CHOL (test code = 2237) 69 MG/DL RISK RATIO LDL/HDL (test cod e = 2238) 1.38 RATIO Kwame GuzmanHEMOGLOBIN [id number] 00:00:00* Test Item Value Reference Range Interpretation Comme nts HEMOGLOBIN A1c (test code = 84156) 7.5 % Kwame GuzmanCOMPREHENSIVE METABOLIC [id number] 00:00:00* Test Item Value Reference Range Interpretation Comme nts GLUCOSE (test code = 2217) 115 MG/DL BUN (test code = 2208) 18 MG/DL CREATININE (test code = 2214) 0.69 MG/DL eGFR (2020 CKD-EPI) (test code = 75438) 101 ML/MIN/1.73 CALC BUN/CREAT (test code = 2235) 26 RATIO SODIUM (test code = 2231) 140 MEQ/L POTASSIUM (test code = 2228) 4.2 MEQ/L CHLORIDE (test code = 2215) 104 MEQ/L CARBON DIOXIDE (test code = 2206) 21 MEQ/L CALCIUM (test code = 2209) 9.2 MG/DL PROTEIN, TOTAL (test code = 2229) 7.0 G/DL ALBUMIN (test code = 2201) 4.5 G/DL CALC GLOBULIN (test code = 2240) 2.5 G/DL CALC A/G RATIO (test code = 2234) 1.8 RATIO BILIRUBIN, TOTAL (test code = 2207) 0.9 MG/DL ALKALINE PHOSPHATASE (test code = 2204) 52 U/L AST (test code = 2218) 19 U/L ALT (test code = 2219) 21 U/L Kwame GuzmanLIPID [id number] 00:00:00* Test Item Value Reference Range Interpretation Comme nts CHOLESTEROL (test code = 2210) 134 MG/DL TRIGLYCERIDES (test code = 2232) 71 MG/DL HDL CHOLESTEROL (test code = 2220) 50 MG/DL CALC LDL CHOL (test code = 2237) 69 MG/DL RISK RATIO LDL/HDL (test cod e = 2238) 1.38 RATIO Kwame GuzmanHEMOGLOBIN [id number] 00:00:00* Test Item Value Reference Range Interpretation Comme nts HEMOGLOBIN A1c (test code = 30659) 7.5 % Kwame GuzmanCOMPREHENSIVE METABOLIC [id number] 00:00:00* Test Item Value Reference Range Interpretation Comme nts GLUCOSE (test code = 2217) 115 MG/DL BUN (test code = 2208) 18 MG/DL CREATININE (test code = 2214) 0.69 MG/DL eGFR (2020 CKD-EPI) (test code = 19841) 101 ML/MIN/1.73 CALC BUN/CREAT (test code = 2235) 26 RATIO SODIUM (test code = 2231) 140 MEQ/L POTASSIUM (test code = 2228) 4.2 MEQ/L CHLORIDE (test code = 2215) 104 MEQ/L CARBON DIOXIDE (test code = 2206) 21 MEQ/L CALCIUM (test code = 2209) 9.2 MG/DL PROTEIN, TOTAL (test code = 2229) 7.0 G/DL ALBUMIN (test code = 2201) 4.5 G/DL CALC GLOBULIN (test code = 2240) 2.5 G/DL CALC A/G RATIO (test code = 2234) 1.8 RATIO BILIRUBIN, TOTAL (test code = 2207) 0.9 MG/DL ALKALINE PHOSPHATASE (test code = 2204) 52 U/L AST (test code = 2218) 19 U/L ALT (test code = 2219) 21 U/L Kwame Reza AustinLIPID [id number] 00:00:00* Test Item Value Reference Range Interpretation Comme nts CHOLESTEROL (test code = 2210) 134 MG/DL TRIGLYCERIDES (test code = 2232) 71 MG/DL HDL CHOLESTEROL (test code = 2220) 50 MG/DL CALC LDL CHOL (test code = 2237) 69 MG/DL RISK RATIO LDL/HDL (test cod e = 2238) 1.38 RATIO Kwame GuzmanHEMOGLOBIN [id number] 00:00:00* Test Item Value Reference Range Interpretation Comme nts HEMOGLOBIN A1c (test code = 95458) 7.5 % Kwame GuzmanCOMPREHENSIVE METABOLIC [id number] 00:00:00* Test Item Value Reference Range Interpretation Comme nts GLUCOSE (test code = 2217) 115 MG/DL BUN (test code = 2208) 18 MG/DL CREATININE (test code = 2214) 0.69 MG/DL eGFR (2020 CKD-EPI) (test code = 76418) 101 ML/MIN/1.73 CALC BUN/CREAT (test code = 2235) 26 RATIO SODIUM (test code = 2231) 140 MEQ/L POTASSIUM (test code = 2228) 4.2 MEQ/L CHLORIDE (test code = 2215) 104 MEQ/L CARBON DIOXIDE (test code = 2206) 21 MEQ/L CALCIUM (test code = 2209) 9.2 MG/DL PROTEIN, TOTAL (test code = 2229) 7.0 G/DL ALBUMIN (test code = 2201) 4.5 G/DL CALC GLOBULIN (test code = 2240) 2.5 G/DL CALC A/G RATIO (test code = 2234) 1.8 RATIO BILIRUBIN, TOTAL (test code = 2207) 0.9 MG/DL ALKALINE PHOSPHATASE (test code = 2204) 52 U/L AST (test code = 2218) 19 U/L ALT (test code = 2219) 21 U/L Kwame GuzmanLIPID [id number] 00:00:00* Test Item Value Reference Range Interpretation Comme nts CHOLESTEROL (test code = 2210) 134 MG/DL TRIGLYCERIDES (test code = 2232) 71 MG/DL HDL CHOLESTEROL (test code = 2220) 50 MG/DL CALC LDL CHOL (test code = 2237) 69 MG/DL RISK RATIO LDL/HDL (test cod e = 2238) 1.38 RATIO Kwame GuzmanHEMOGLOBIN [id number] 00:00:00* Test Item Value Reference Range Interpretation Comme nts HEMOGLOBIN A1c (test code = 70417) 7.5 % Kwame GuzmanALBUMIN/CREATININE RATIO, URINE, [id number] 05:11:44* Test Item Value Reference Range Interpretation Comme nts CREATININE, URINE, CONC. (test code = 2072) 184.2 MG/DL NOT ESTAB ALBUMIN, URINE, RANDOM (test code = 66568) 2.1 MG/DL NOT ESTAB CALC ALBUMIN/CREAT, RND (test code = 59093) 11 MG/G <30 Note: Albumin/Cr eatinine ratio reference interval reflects ADA and NKF guidelines. UNLESS OTHERWISE INDICATED, ALL TESTING PERFORMED AT [facility] [address] [place] [id number] HOME HEALTH CLINICAL LIAISON: TREY RIDDLE M.D. CLIA NUMBER [id number] [place]. [id number] ALBUMIN/CREATININE RATIO, RANDOM [id number] 00:00:00* Test Item Value Reference Range Interpretation Comme nts CREATININE, URINE, CONC. (te st code = 2071) 184.2 MG/DL ALBUMIN, URINE, RANDOM (test code = 79415) 2.1 MG/DL CALC ALBUMIN/CREAT, RND (monica t code = 18241) 11 MG/G Kwame F AustinALBUMIN/CREATININE RATIO, RANDOM [id number] 00:00:00* Test Item Value Reference Range Interpretation Comme nts CREATININE, URINE, CONC. (te st code = 2071) 184.2 MG/DL ALBUMIN, URINE, RANDOM (test code = 80270) 2.1 MG/DL CALC ALBUMIN/CREAT, RND (monica t code = 44677) 11 MG/G Kwame F AustinALBUMIN/CREATININE RATIO, RANDOM [id number] 00:00:00* Test Item Value Reference Range Interpretation Comme nts CREATININE, URINE, CONC. (te st code = 2071) 184.2 MG/DL ALBUMIN, URINE, RANDOM (test code = 70755) 2.1 MG/DL CALC ALBUMIN/CREAT, RND (monica t code = 66057) 11 MG/G Kwame F AustinALBUMIN/CREATININE RATIO, RANDOM [id number] 00:00:00* Test Item Value Reference Range Interpretation Comme nts CREATININE, URINE, CONC. (te st code = 2071) 184.2 MG/DL ALBUMIN, URINE, RANDOM (test code = 22605) 2.1 MG/DL CALC ALBUMIN/CREAT, RND (monica t code = 45520) 11 MG/G Kwame F AustinCOMPREHENSIVE METABOLIC [id number] 23:46:23* Test Item Value Reference Range Interpretation Comme nts GLUCOSE (test code = 2217) 107 MG/DL 70-99 H BUN (test code = 2207) 21 MG/DL 8-23 CREATININE (test code = 2213) 0.76 MG/DL 0.80-1.40 L eGFR (2020 CKD-EPI) (test co de = 16631) 99 ML/MIN/1.73 >60 CALC BUN/CREAT (test code = 2234) 28 RATIO 6-28 SODIUM (test code = 2230) 143 MEQ/L 133-146 POTASSIUM (test code = 2227) 4.3 MEQ/L 3.5-5.4 CHLORIDE (test code = 2214) 104 MEQ/L 95-107 CARBON DIOXIDE (test code = 2205) 25 MEQ/L 19-31 CALCIUM (test code = 2208) 9.9 MG/DL 8.5-10.5 PROTEIN, TOTAL (test code = 2228) 7.5 G/DL 6.1-8.3 ALBUMIN (test code = 2200) 4.7 G/DL 3.5-5.2 CALC GLOBULIN (test code = 2240) 2.8 G/DL 1.9-3.7 CALC A/G RATIO (test code = 223) 1.7 RATIO 1.0-2.6 BILIRUBIN, TOTAL (test code = 2206) 1.0 MG/DL <=1.2 ALKALINE PHOSPHATASE (test code = 2203) 51 U/L 40-125 AST (test code = 221) 17 U/L 9-50 ALT (test code = 2219) 18 U/L 5-50 LIPID [id number] 23:46:23* Test Item Value Reference Range Interpretation Comme nts CHOLESTEROL (test code = 2210) 146 MG/DL <200 TRIGLYCERIDES (test code = 2232) 70 MG/DL <150 HDL CHOLESTEROL (test code = 2220) 55 MG/DL >39 CALC LDL CHOL (test code = 2237) 76 MG/DL <100 NOTE: CALCULATED LDL IS BASED ON HALI-SHIRLEY METHOD WHICHINCLUDES ADJUSTABLE TRIGLYCERIDE:VLDL CHOLESTEROL RATIO.THIS FACTOR VARIES BY MEASURED TRIGLYCERIDE AND NON-HDLCHOLESTEROL CONCENTRATIONS WITH INCREASED CALCULATED LDL SEENIN HIGHER TRIGLYCERIDE OR LOWER NON-HDL SPECIMENS. FOR MOREINFORMATION, SEE CLIENT ANNOUNCEMENT AT [email or web address] [email or web address] RATIO LDL/HDL (test code = 2238) 1.38 RATIO <3.55 HEMOGLOBIN [id number] 02:37:32* Test Item Value Reference Range Interpretation Comme [facility] HEMOGLOBIN A1c (test code = 71520) 7.1 % 4.2-5.6 H [employer] GUIDELINES FOR HGB A1C: PREDIABETES/INCREASED RISK . . . . . . . 5.7-6.4% DIAGNOSIS OF DIABETES . . . . . . . . . >=6.5% WITH CONFIRMATION OR APPROPRIATE SYMPTOMS NOTE: ASSAY MAY BE AFFECTED BY HEMOGLOBINOPATHIES (SICKLE CELL ANEMIA, S-C DISEASE, OTHERS) OR ARTIFICIALLY LOWERED BY DECREASED RED CELL SURVIVAL (HEMOLYTIC ANEMIAS, BLOOD LOSS, ETC.). CONSIDER ALTERNATE TESTING OR LABORATORY CONSULTATION. HEMOGLOBIN [id number] 00:00:00* Test Item Value Reference Range Interpretation Comme [facility] HEMOGLOBIN A1c (test code = 07879) 7.1 % Kwame GuzmanCOMPREHENSIVE METABOLIC [id number] 00:00:00* Test Item Value Reference Range Interpretation Comme nts GLUCOSE (test code = 2217) 107 MG/DL BUN (test code = 2208) 21 MG/DL CREATININE (test code = 2214) 0.76 MG/DL eGFR (2020 CKD-EPI) (test co de = 29206) 99 ML/MIN/1.73 CALC BUN/CREAT (test code = 2235) 28 RATIO SODIUM (test code = 2231) 143 MEQ/L POTASSIUM (test code = 2228) 4.3 MEQ/L CHLORIDE (test code = 2215) 104 MEQ/L CARBON DIOXIDE (test code = 2206) 25 MEQ/L CALCIUM (test code = 2209) 9.9 MG/DL PROTEIN, TOTAL (test code = 2229) 7.5 G/DL ALBUMIN (test code = 2201) 4.7 G/DL CALC GLOBULIN (test code = 2240) 2.8 G/DL CALC A/G RATIO (test code = 2234) 1.7 RATIO BILIRUBIN, TOTAL (test code = 2207) 1.0 MG/DL ALKALINE PHOSPHATASE (test code = 2204) 51 U/L AST (test code = 2218) 17 U/L ALT (test code = 2219) 18 U/L Kwame GuzmanLIPID [id number] 00:00:00* Test Item Value Reference Range Interpretation Comme nts CHOLESTEROL (test code = 2210) 146 MG/DL TRIGLYCERIDES (test code = 2232) 70 MG/DL HDL CHOLESTEROL (test code = 2220) 55 MG/DL CALC LDL CHOL (test code = 2237) 76 MG/DL RISK RATIO LDL/HDL (test cod e = 2238) 1.38 RATIO Kwame GuzmanHEMOGLOBIN [id number] 00:00:00* Test Item Value Reference Range Interpretation Comme nts HEMOGLOBIN A1c (test code = 39302) 7.1 % Kwame GuzmanCOMPREHENSIVE METABOLIC [id number] 00:00:00* Test Item Value Reference Range Interpretation Comme nts GLUCOSE (test code = 2217) 107 MG/DL BUN (test code = 2208) 21 MG/DL CREATININE (test code = 2214) 0.76 MG/DL eGFR (2020 CKD-EPI) (test co de = 88500) 99 ML/MIN/1.73 CALC BUN/CREAT (test code = 2235) 28 RATIO SODIUM (test code = 2231) 143 MEQ/L POTASSIUM (test code = 2228) 4.3 MEQ/L CHLORIDE (test code = 2215) 104 MEQ/L CARBON DIOXIDE (test code = 2206) 25 MEQ/L CALCIUM (test code = 2209) 9.9 MG/DL PROTEIN, TOTAL (test code = 2229) 7.5 G/DL ALBUMIN (test code = 2201) 4.7 G/DL CALC GLOBULIN (test code = 2240) 2.8 G/DL CALC A/G RATIO (test code = 2234) 1.7 RATIO BILIRUBIN, TOTAL (test code = 2207) 1.0 MG/DL ALKALINE PHOSPHATASE (test code = 2204) 51 U/L AST (test code = 2218) 17 U/L ALT (test code = 2219) 18 U/L Kwame Reza AustinLIPID [id number] 00:00:00* Test Item Value Reference Range Interpretation Comme nts CHOLESTEROL (test code = 2210) 146 MG/DL TRIGLYCERIDES (test code = 2232) 70 MG/DL HDL CHOLESTEROL (test code = 2220) 55 MG/DL CALC LDL CHOL (test code = 2237) 76 MG/DL RISK RATIO LDL/HDL (test cod e = 2238) 1.38 RATIO Kwame F AustinHEMOGLOBIN [id number] 00:00:00* Test Item Value Reference Range Interpretation Comme nts HEMOGLOBIN A1c (test code = 17048) 7.1 % Kwame GuzmanCOMPREHENSIVE METABOLIC [id number] 00:00:00* Test Item Value Reference Range Interpretation Comme nts GLUCOSE (test code = 2217) 107 MG/DL BUN (test code = 2208) 21 MG/DL CREATININE (test code = 2214) 0.76 MG/DL eGFR (2020 CKD-EPI) (test co de = 55875) 99 ML/MIN/1.73 CALC BUN/CREAT (test code = 2235) 28 RATIO SODIUM (test code = 2231) 143 MEQ/L POTASSIUM (test code = 2228) 4.3 MEQ/L CHLORIDE (test code = 2215) 104 MEQ/L CARBON DIOXIDE (test code = 2206) 25 MEQ/L CALCIUM (test code = 2209) 9.9 MG/DL PROTEIN, TOTAL (test code = 2229) 7.5 G/DL ALBUMIN (test code = 2201) 4.7 G/DL CALC GLOBULIN (test code = 2240) 2.8 G/DL CALC A/G RATIO (test code = 2234) 1.7 RATIO BILIRUBIN, TOTAL (test code = 2207) 1.0 MG/DL ALKALINE PHOSPHATASE (test code = 2204) 51 U/L AST (test code = 2218) 17 U/L ALT (test code = 2219) 18 U/L Kwame Reza AustinLIPID [id number] 00:00:00* Test Item Value Reference Range Interpretation Comme nts CHOLESTEROL (test code = 2210) 146 MG/DL TRIGLYCERIDES (test code = 2232) 70 MG/DL HDL CHOLESTEROL (test code = 2220) 55 MG/DL CALC LDL CHOL (test code = 2237) 76 MG/DL RISK RATIO LDL/HDL (test cod e = 2238) 1.38 RATIO Kwame GuzmanHEMOGLOBIN [id number] 00:00:00* Test Item Value Reference Range Interpretation Comme nts HEMOGLOBIN A1c (test code = 35801) 7.1 % Kwame Reza AustinCOMPREHENSIVE METABOLIC [id number] 00:00:00* Test Item Value Reference Range Interpretation Comme nts GLUCOSE (test code = 2217) 107 MG/DL BUN (test code = 2208) 21 MG/DL CREATININE (test code = 2214) 0.76 MG/DL eGFR (2020 CKD-EPI) (test co de = 33627) 99 ML/MIN/1.73 CALC BUN/CREAT (test code = 2235) 28 RATIO SODIUM (test code = 2231) 143 MEQ/L POTASSIUM (test code = 2228) 4.3 MEQ/L CHLORIDE (test code = 2215) 104 MEQ/L CARBON DIOXIDE (test code = 2206) 25 MEQ/L CALCIUM (test code = 2209) 9.9 MG/DL PROTEIN, TOTAL (test code = 2229) 7.5 G/DL ALBUMIN (test code = 2201) 4.7 G/DL CALC GLOBULIN (test code = 2240) 2.8 G/DL CALC A/G RATIO (test code = 2234) 1.7 RATIO BILIRUBIN, TOTAL (test code = 2207) 1.0 MG/DL ALKALINE PHOSPHATASE (test code = 2204) 51 U/L AST (test code = 2218) 17 U/L ALT (test code = 2219) 18 U/L Kwame Reza StrohoLIPID [id number] 00:00:00* Test Item Value Reference Range Interpretation Comme nts CHOLESTEROL (test code = 2210) 146 MG/DL TRIGLYCERIDES (test code = 2232) 70 MG/DL HDL CHOLESTEROL (test code = 2220) 55 MG/DL CALC LDL CHOL (test code = 2237) 76 MG/DL RISK RATIO LDL/HDL (test cod e = 2238) 1.38 RATIO Kwame Reza AustinLIPID [id number] 00:36:25* Test Item Value Reference Range Interpretation Comme nts CHOLESTEROL (test code = 2210) 144 MG/DL <200 TRIGLYCERIDES (test code = 2232) 71 MG/DL <150 HDL CHOLESTEROL (test code = 2220) 51 MG/DL >39 CALC LDL CHOL (test code = 2237) 78 MG/DL <100 NOTE: CALCULATED LDL IS BASED ON HALI-SHIRLEY METHOD WHICHINCLUDES ADJUSTABLE TRIGLYCERIDE:VLDL CHOLESTEROL RATIO.THIS FACTOR VARIES BY MEASURED TRIGLYCERIDE AND NON-HDLCHOLESTEROL CONCENTRATIONS WITH INCREASED CALCULATED LDL SEENIN HIGHER TRIGLYCERIDE OR LOWER NON-HDL SPECIMENS. FOR MOREINFORMATION, SEE CLIENT ANNOUNCEMENT AT [email or web address] RISK RATIO LDL/HDL (test code = 2237) 1.53 RATIO <3.55 COMPREHENSIVE METABOLIC [id number] 00:36:25* Test Item Value Reference Range Interpretation Comme nts GLUCOSE (test code = 2216) 122 MG/DL 70-99 H BUN (test code = 2207) 18 MG/DL 8-23 CREATININE (test code = 2213) 0.70 MG/DL 0.80-1.40 L eGFR (2020 CKD-EPI) (test code = 99986) 101 ML/MIN/1.73 >60 CALC BUN/CREAT (test code = 2234) 26 RATIO 6-28 SODIUM (test code = 2230) 138 MEQ/L 133-146 POTASSIUM (test code = 2227) 4.2 MEQ/L 3.5-5.4 CHLORIDE (test code = 2214) 103 MEQ/L 95-107 CARBON DIOXIDE (test code = 2205) 22 MEQ/L 19-31 CALCIUM (test code = 2208) 9.2 MG/DL 8.5-10.5 PROTEIN, TOTAL (test code = 2228) 7.0 G/DL 6.1-8.3 ALBUMIN (test code = 220) 4.6 G/DL 3.5-5.2 CALC GLOBULIN (test code = 2240) 2.4 G/DL 1.9-3.7 CALC A/G RATIO (test code = 223) 1.9 RATIO 1.0-2.6 BILIRUBIN, TOTAL (test code = 2206) 0.8 MG/DL <=1.2 ALKALINE PHOSPHATASE (test code = 2203) 57 U/L 40-125 AST (test code = 221) 17 U/L 9-50 ALT (test code = 2219) 21 U/L 5-50 UNLESS OTHERWISE INDICATED, ALL TESTING PERFORMED AT [facility] [address] [place] [address] HOME HEALTH CLINICAL LIAISON: TREY RIDDLE M.D. CLIA NUMBER [id number] [facility] [place]. [id number] LIPID [id number] 00:00:00* Test Item Value Reference Range Interpretation Comme nts CHOLESTEROL (test code = 0) 144 MG/DL TRIGLYCERIDES (test code = 2232) 71 MG/DL HDL CHOLESTEROL (test code = 2220) 51 MG/DL CALC LDL CHOL (test code = 2237) 78 MG/DL RISK RATIO LDL/HDL (test cod e = 2238) 1.53 RATIO Kwame Reza AustinCOMPREHENSIVE METABOLIC [id number] 00:00:00* Test Item Value Reference Range Interpretation Comme nts GLUCOSE (test code = 2217) 122 MG/DL BUN (test code = 2208) 18 MG/DL CREATININE (test code = 2214) 0.70 MG/DL eGFR (2020 CKD-EPI) (test code = 64894) 101 ML/MIN/1.73 CALC BUN/CREAT (test code = 2235) 26 RATIO SODIUM (test code = 2231) 138 MEQ/L POTASSIUM (test code = 2228) 4.2 MEQ/L CHLORIDE (test code = 2215) 103 MEQ/L CARBON DIOXIDE (test code = 2206) 22 MEQ/L CALCIUM (test code = 2209) 9.2 MG/DL PROTEIN, TOTAL (test code = 2229) 7.0 G/DL ALBUMIN (test code = 2201) 4.6 G/DL CALC GLOBULIN (test code = 2240) 2.4 G/DL CALC A/G RATIO (test code = 2234) 1.9 RATIO BILIRUBIN, TOTAL (test code = 2207) 0.8 MG/DL ALKALINE PHOSPHATASE (test code = 2204) 57 U/L AST (test code = 2218) 17 U/L ALT (test code = 2219) 21 U/L Kwame Reza AustinLIPID [id number] 00:00:00* Test Item Value Reference Range Interpretation Comme nts CHOLESTEROL (test code = 2210) 144 MG/DL TRIGLYCERIDES (test code = 2232) 71 MG/DL HDL CHOLESTEROL (test code = 2220) 51 MG/DL CALC LDL CHOL (test code = 2237) 78 MG/DL RISK RATIO LDL/HDL (test cod e = 2238) 1.53 RATIO Kwame Reza AustinCOMPREHENSIVE METABOLIC [id number] 00:00:00* Test Item Value Reference Range Interpretation Comme nts GLUCOSE (test code = 2217) 122 MG/DL BUN (test code = 2208) 18 MG/DL CREATININE (test code = 2214) 0.70 MG/DL eGFR (2020 CKD-EPI) (test code = 23659) 101 ML/MIN/1.73 CALC BUN/CREAT (test code = 2235) 26 RATIO SODIUM (test code = 2231) 138 MEQ/L POTASSIUM (test code = 2228) 4.2 MEQ/L CHLORIDE (test code = 2215) 103 MEQ/L CARBON DIOXIDE (test code = 2206) 22 MEQ/L CALCIUM (test code = 2209) 9.2 MG/DL PROTEIN, TOTAL (test code = 2229) 7.0 G/DL ALBUMIN (test code = 2201) 4.6 G/DL CALC GLOBULIN (test code = 2240) 2.4 G/DL CALC A/G RATIO (test code = 2234) 1.9 RATIO BILIRUBIN, TOTAL (test code = 2207) 0.8 MG/DL ALKALINE PHOSPHATASE (test code = 2204) 57 U/L AST (test code = 2218) 17 U/L ALT (test code = 2219) 21 U/L Kwame Reza AustinLIPID [id number] 00:00:00* Test Item Value Reference Range Interpretation Comme nts CHOLESTEROL (test code = 2210) 144 MG/DL TRIGLYCERIDES (test code = 2232) 71 MG/DL HDL CHOLESTEROL (test code = 2220) 51 MG/DL CALC LDL CHOL (test code = 2237) 78 MG/DL RISK RATIO LDL/HDL (test cod e = 2238) 1.53 RATIO Kwame GuzmanCOMPREHENSIVE METABOLIC [id number] 00:00:00* Test Item Value Reference Range Interpretation Comme nts GLUCOSE (test code = 2217) 122 MG/DL BUN (test code = 2208) 18 MG/DL CREATININE (test code = 2214) 0.70 MG/DL eGFR (2020 CKD-EPI) (test code = 89191) 101 ML/MIN/1.73 CALC BUN/CREAT (test code = 2235) 26 RATIO SODIUM (test code = 2231) 138 MEQ/L POTASSIUM (test code = 2228) 4.2 MEQ/L CHLORIDE (test code = 2215) 103 MEQ/L CARBON DIOXIDE (test code = 2206) 22 MEQ/L CALCIUM (test code = 2209) 9.2 MG/DL PROTEIN, TOTAL (test code = 2229) 7.0 G/DL ALBUMIN (test code = 2201) 4.6 G/DL CALC GLOBULIN (test code = 2240) 2.4 G/DL CALC A/G RATIO (test code = 2234) 1.9 RATIO BILIRUBIN, TOTAL (test code = 2207) 0.8 MG/DL ALKALINE PHOSPHATASE (test code = 2204) 57 U/L AST (test code = 2218) 17 U/L ALT (test code = 2219) 21 U/L Kwame GuzmanLIPID [id number] 00:00:00* Test Item Value Reference Range Interpretation Comme nts CHOLESTEROL (test code = 2210) 144 MG/DL TRIGLYCERIDES (test code = 2232) 71 MG/DL HDL CHOLESTEROL (test code = 2220) 51 MG/DL CALC LDL CHOL (test code = 2237) 78 MG/DL RISK RATIO LDL/HDL (test cod e = 2238) 1.53 RATIO Kwame GuzmanCOMPREHENSIVE METABOLIC [id number] 00:00:00* Test Item Value Reference Range Interpretation Comme nts GLUCOSE (test code = 2217) 122 MG/DL BUN (test code = 2208) 18 MG/DL CREATININE (test code = 2214) 0.70 MG/DL eGFR (2020 CKD-EPI) (test code = 03692) 101 ML/MIN/1.73 CALC BUN/CREAT (test code = 2235) 26 RATIO SODIUM (test code = 2231) 138 MEQ/L POTASSIUM (test code = 2228) 4.2 MEQ/L CHLORIDE (test code = 2215) 103 MEQ/L CARBON DIOXIDE (test code = 2206) 22 MEQ/L CALCIUM (test code = 2209) 9.2 MG/DL PROTEIN, TOTAL (test code = 2229) 7.0 G/DL ALBUMIN (test code = 2201) 4.6 G/DL CALC GLOBULIN (test code = 2240) 2.4 G/DL CALC A/G RATIO (test code = 2234) 1.9 RATIO BILIRUBIN, TOTAL (test code = 2207) 0.8 MG/DL ALKALINE PHOSPHATASE (test code = 2204) 57 U/L AST (test code = 2218) 17 U/L ALT (test code = 2219) 21 U/L Kwame GuzmanHEMOGLOBIN [id number] 02:38:23* Test Item Value Reference Range Interpretation Comme nts HEMOGLOBIN A1c (test code = 53853) 7.9 % 4.2-5.6 H [employer] GUIDELINES FOR HGB A1C: PREDIABETES/INCREASED RISK . . . . . . . 5.7-6.4% DIAGNOSIS OF DIABETES . . . . . . . . . >=6.5% WITH CONFIRMATION OR APPROPRIATE SYMPTOMS NOTE: ASSAY MAY BE AFFECTED BY HEMOGLOBINOPATHIES (SICKLE CELL ANEMIA, S-C DISEASE, OTHERS) OR ARTIFICIALLY LOWERED BY DECREASED RED CELL SURVIVAL (HEMOLYTIC ANEMIAS, BLOOD LOSS, ETC.). CONSIDER ALTERNATE TESTING OR LABORATORY CONSULTATION. HEMOGLOBIN [id number] 00:00:00* Test Item Value Reference Range Interpretation Comme reyes HEMOGLOBIN A1c (test code = 64203) 7.9 % Kwame Reza AustinHEMOGLOBIN [id number] 00:00:00* Test Item Value Reference Range Interpretation Comme reyes HEMOGLOBIN A1c (test code = 75875) 7.9 % Kwame Reza AustinHEMOGLOBIN [id number] 00:00:00* Test Item Value Reference Range Interpretation Comme reyes HEMOGLOBIN A1c (test code = 77990) 7.9 % Kwame Reza AustinHEMOGLOBIN [id number] 00:00:00* Test Item Value Reference Range Interpretation Comme reyes HEMOGLOBIN A1c (test code = 77748) 7.9 % Kwame Jarrell, [id number] 10:32:20SPECIMEN NUMBER: [id number] CULTURE, URINE SPECIMEN NUMBER: [id number] SOURCE: URINE REPORT STATUS: FINAL FINAL REPORT: 11/27/2022 <10,000 CFU/ML UROGENITAL MODESTO PRESENT NO COMMON PATHOGENS UNLESS OTHERWISE INDICATED, ALL TESTING PERFORMED AT [facility] [address] [place] [address] HOME HEALTH CLINICAL LIAISON: TREY RIDDLE M.D. CLIA NUMBER [id number] [place]. [id number] CULTURE, [id number] 00:00:00* Test Item Value Reference Range Interpretation Comme nts CULTURE, URINE (test code = 72399) SPECIMEN NUMBER: [id number] Kwame GuzmanCULTURE, [id number] 00:00:00* Test Item Value Reference Range Interpretation Comme nts CULTURE, URINE (test code = 48364) SPECIMEN NUMBER: [id number] Kwame MillerLTURE, [id number] 00:00:00* Test Item Value Reference Range Interpretation Comme nts CULTURE, URINE (test code = 11123) SPECIMEN NUMBER: [id number] Kwame GuzmanCULTURE, [id number] 00:00:00* Test Item Value Reference Range Interpretation Comme nts CULTURE, URINE (test code = 84184) SPECIMEN NUMBER: [id number] Kwame GuzmanCOMPREHENSIVE METABOLIC [id number] 04:13:15* Test Item Value Reference Range Interpretation Comme nts GLUCOSE (test code = 7) 120 MG/DL 70-99 H BUN (test code = 2207) 17 MG/DL 8-23 CREATININE (test code = 221) 0.62 MG/DL 0.80-1.40 L eGFR (2020 CKD-EPI) (test code = 79450) 105 ML/MIN/1.73 >60 CALC BUN/CREAT (test code = 2235) 27 RATIO 6-28 SODIUM (test code = 223) 141 MEQ/L 133-146 POTASSIUM (test code = 2228) 4.2 MEQ/L 3.5-5.4 CHLORIDE (test code = 2215) 106 MEQ/L 95-107 CARBON DIOXIDE (test code = 2206) 23 MEQ/L 19-31 CALCIUM (test code = 2209) 9.4 MG/DL 8.5-10.5 PROTEIN, TOTAL (test code = 2229) 7.2 G/DL 6.1-8.3 ALBUMIN (test code = 2201) 4.5 G/DL 3.5-5.2 CALC GLOBULIN (test code = 2240) 2.7 G/DL 1.9-3.7 CALC A/G RATIO (test code = 2234) 1.7 RATIO 1.0-2.6 BILIRUBIN, TOTAL (test code = 2207) 0.8 MG/DL See_Comment [Automated me ssage] The system which generated this result transmitted reference range: <=1.2. The reference range was not used to interpret this result as normal/abnormal. ALKALINE PHOSPHATASE (test code = 2204) 52 U/L 40-125 AST (test code = 2218) 16 U/L 9-50 ALT (test code = 2219) 18 U/L 5-50 LIPID [id number] 04:13:15* Test Item Value Reference Range Interpretation Comme nts CHOLESTEROL (test code = 2210) 144 MG/DL <200 TRIGLYCERIDES (test code = 2232) 82 MG/DL <150 HDL CHOLESTEROL (test code = 2220) 48 MG/DL >39 CALC LDL CHOL (test code = 2237) 80 MG/DL <100 NOTE: CALCULATED LDL IS BASED ON HALI-SHIRLEY METHOD WHICHINCLUDES ADJUSTABLE TRIGLYCERIDE:VLDL CHOLESTEROL RATIO.THIS FACTOR VARIES BY MEASURED TRIGLYCERIDE AND NON-HDLCHOLESTEROL CONCENTRATIONS WITH INCREASED CALCULATED LDL SEENIN HIGHER TRIGLYCERIDE OR LOWER NON-HDL SPECIMENS. FOR MOREINFORMATION, SEE CLIENT ANNOUNCEMENT AT [email or web address] ([employer]) /CalcLDL-C RISK RATIO LDL/HDL (test code = 2238) 1.67 RATIO <3.55 UNLESS OTHERW ISE INDICATED, ALL TESTING PERFORMED AT [facility] [address] [place] [address] HOME HEALTH CLINICAL LIAISON: TREY RIDDLE M.D. [place] NUMBER [id number] [facility] [place]. [id number] HEMOGLOBIN [id number] 02:33:34* Test Item Value Reference Range Interpretation Comme nts HEMOGLOBIN A1c (test code = 07026) 6.9 % 4.2-5.6 H [employer] GUIDELINES FOR HGB A1C: PREDIABETES/INCREASED RISK . . . . . . . 5.7-6.4% DIAGNOSIS OF DIABETES . . . . . . . . . >=6.5% WITH CONFIRMATION OR APPROPRIATE SYMPTOMS NOTE: ASSAY MAY BE AFFECTED BY HEMOGLOBINOPATHIES (SICKLE CELL ANEMIA, S-C DISEASE, OTHERS) OR ARTIFICIALLY LOWERED BY DECREASED RED CELL SURVIVAL (HEMOLYTIC ANEMIAS, BLOOD LOSS, ETC.). CONSIDER ALTERNATE TESTING OR LABORATORY CONSULTATION. HEMOGLOBIN [id number] 00:00:00* Test Item Value Reference Range Interpretation Comme nts HEMOGLOBIN A1c (test code = 42145) 6.9 % Kwame F ThomasCOMPREHENSIVE METABOLIC [id number] 00:00:00* Test Item Value Reference Range Interpretation Comme nts GLUCOSE (test code = 2217) 120 MG/DL BUN (test code = 2208) 17 MG/DL CREATININE (test code = 2214) 0.62 MG/DL eGFR (2020 CKD-EPI) (test code = 31657) 105 ML/MIN/1.73 CALC BUN/CREAT (test code = 2235) 27 RATIO SODIUM (test code = 2231) 141 MEQ/L POTASSIUM (test code = 2228) 4.2 MEQ/L CHLORIDE (test code = 2215) 106 MEQ/L CARBON DIOXIDE (test code = 2206) 23 MEQ/L CALCIUM (test code = 2209) 9.4 MG/DL PROTEIN, TOTAL (test code = 2229) 7.2 G/DL ALBUMIN (test code = 2201) 4.5 G/DL CALC GLOBULIN (test code = 2240) 2.7 G/DL CALC A/G RATIO (test code = 2234) 1.7 RATIO BILIRUBIN, TOTAL (test code = 2207) 0.8 MG/DL ALKALINE PHOSPHATASE (test code = 2204) 52 U/L AST (test code = 2218) 16 U/L ALT (test code = 2219) 18 U/L Kwame GuzmanLIPID [id number] 00:00:00* Test Item Value Reference Range Interpretation Comme nts CHOLESTEROL (test code = 2210) 144 MG/DL TRIGLYCERIDES (test code = 2232) 82 MG/DL HDL CHOLESTEROL (test code = 2220) 48 MG/DL CALC LDL CHOL (test code = 2237) 80 MG/DL RISK RATIO LDL/HDL (test cod e = 2238) 1.67 RATIO Kwame GuzmanHEMOGLOBIN [id number] 00:00:00* Test Item Value Reference Range Interpretation Comme nts HEMOGLOBIN A1c (test code = 79783) 6.9 % Kwame GuzmanCOMPREHENSIVE METABOLIC [id number] 00:00:00* Test Item Value Reference Range Interpretation Comme nts GLUCOSE (test code = 2217) 120 MG/DL BUN (test code = 2208) 17 MG/DL CREATININE (test code = 2214) 0.62 MG/DL eGFR (2020 CKD-EPI) (test code = 86962) 105 ML/MIN/1.73 CALC BUN/CREAT (test code = 2235) 27 RATIO SODIUM (test code = 2231) 141 MEQ/L POTASSIUM (test code = 2228) 4.2 MEQ/L CHLORIDE (test code = 2215) 106 MEQ/L CARBON DIOXIDE (test code = 2206) 23 MEQ/L CALCIUM (test code = 2209) 9.4 MG/DL PROTEIN, TOTAL (test code = 2229) 7.2 G/DL ALBUMIN (test code = 2201) 4.5 G/DL CALC GLOBULIN (test code = 2240) 2.7 G/DL CALC A/G RATIO (test code = 2234) 1.7 RATIO BILIRUBIN, TOTAL (test code = 2207) 0.8 MG/DL ALKALINE PHOSPHATASE (test code = 2204) 52 U/L AST (test code = 2218) 16 U/L ALT (test code = 2219) 18 U/L Kwame GuzmanLIPID [id number] 00:00:00* Test Item Value Reference Range Interpretation Comme nts CHOLESTEROL (test code = 2210) 144 MG/DL TRIGLYCERIDES (test code = 2232) 82 MG/DL HDL CHOLESTEROL (test code = 2220) 48 MG/DL CALC LDL CHOL (test code = 2237) 80 MG/DL RISK RATIO LDL/HDL (test cod e = 2238) 1.67 RATIO Kwame GuzmanHEMOGLOBIN [id number] 00:00:00* Test Item Value Reference Range Interpretation Comme nts HEMOGLOBIN A1c (test code = 35261) 6.9 % Kwame GuzmanCOMPREHENSIVE METABOLIC [id number] 00:00:00* Test Item Value Reference Range Interpretation Comme nts GLUCOSE (test code = 2217) 120 MG/DL BUN (test code = 2208) 17 MG/DL CREATININE (test code = 2214) 0.62 MG/DL eGFR (2020 CKD-EPI) (test code = 07978) 105 ML/MIN/1.73 CALC BUN/CREAT (test code = 2235) 27 RATIO SODIUM (test code = 2231) 141 MEQ/L POTASSIUM (test code = 2228) 4.2 MEQ/L CHLORIDE (test code = 2215) 106 MEQ/L CARBON DIOXIDE (test code = 2206) 23 MEQ/L CALCIUM (test code = 2209) 9.4 MG/DL PROTEIN, TOTAL (test code = 2229) 7.2 G/DL ALBUMIN (test code = 2201) 4.5 G/DL CALC GLOBULIN (test code = 2240) 2.7 G/DL CALC A/G RATIO (test code = 2234) 1.7 RATIO BILIRUBIN, TOTAL (test code = 2207) 0.8 MG/DL ALKALINE PHOSPHATASE (test code = 2204) 52 U/L AST (test code = 2218) 16 U/L ALT (test code = 2219) 18 U/L Kwame GuzmanLIPID [id number] 00:00:00* Test Item Value Reference Range Interpretation Comme nts CHOLESTEROL (test code = 2210) 144 MG/DL TRIGLYCERIDES (test code = 2232) 82 MG/DL HDL CHOLESTEROL (test code = 2220) 48 MG/DL CALC LDL CHOL (test code = 2237) 80 MG/DL RISK RATIO LDL/HDL (test cod e = 2238) 1.67 RATIO Kwame GuzmanHEMOGLOBIN [id number] 00:00:00* Test Item Value Reference Range Interpretation Comme nts HEMOGLOBIN A1c (test code = 90285) 6.9 % Kwame GuzmanCOMPREHENSIVE METABOLIC [id number] 00:00:00* Test Item Value Reference Range Interpretation Comme nts GLUCOSE (test code = 2217) 120 MG/DL BUN (test code = 2208) 17 MG/DL CREATININE (test code = 2214) 0.62 MG/DL eGFR (2020 CKD-EPI) (test code = 67080) 105 ML/MIN/1.73 CALC BUN/CREAT (test code = 2235) 27 RATIO SODIUM (test code = 2231) 141 MEQ/L POTASSIUM (test code = 2228) 4.2 MEQ/L CHLORIDE (test code = 2215) 106 MEQ/L CARBON DIOXIDE (test code = 2206) 23 MEQ/L CALCIUM (test code = 2209) 9.4 MG/DL PROTEIN, TOTAL (test code = 2229) 7.2 G/DL ALBUMIN (test code = 2201) 4.5 G/DL CALC GLOBULIN (test code = 2240) 2.7 G/DL CALC A/G RATIO (test code = 2234) 1.7 RATIO BILIRUBIN, TOTAL (test code = 2207) 0.8 MG/DL ALKALINE PHOSPHATASE (test code = 2204) 52 U/L AST (test code = 2218) 16 U/L ALT (test code = 2219) 18 U/L Kwame GuzmanLIPID [id number] 00:00:00* Test Item Value Reference Range Interpretation Comme nts CHOLESTEROL (test code = 2210) 144 MG/DL TRIGLYCERIDES (test code = 2232) 82 MG/DL HDL CHOLESTEROL (test code = 2220) 48 MG/DL CALC LDL CHOL (test code = 2237) 80 MG/DL RISK RATIO LDL/HDL (test cod e = 2238) 1.67 RATIO Kwame GuzmanH. PYLORI (BREATH)2022-06-06 13:15:14* Test Item Value Reference Range Interpretation Comme nts H. PYLORI (BREATH) (test code = 83566) NEGATIVE NEGATIVE [facility] has important pathology staff changes effective 06/04/2022. New pathology staff will provide uninterrupted, excellent patient care and clinical consultation. See URL: [email or web address]. UNLESS OTHERWISE INDICATED, ALL TESTING PERFORMED AT [facility] [address] [place] [address] HOME HEALTH CLINICAL LIAISON: EV LYNN M.D. IA NUMBER [id number] [facility] [place]. [id number] H. PYLORI (BREATH)2022-06-06 00:00:00* Test Item Value Reference Range Interpretation Comme nts H. PYLORI (BREATH) (test cod e = 86897) NEGATIVE Kwame Reza AustinH. PYLORI (BREATH)2022-06-06 00:00:00* Test Item Value Reference Range Interpretation Comme nts H. PYLORI (BREATH) (test cod e = 37788) NEGATIVE Kwame Reza AustinH. PYLORI (BREATH)2022-06-06 00:00:00* Test Item Value Reference Range Interpretation Comme nts H. PYLORI (BREATH) (test cod e = 70500) NEGATIVE Kwame Libia AustinH. PYLORI (BREATH)2022-06-06 00:00:00* Test Item Value Reference Range Interpretation Comme nts H. PYLORI (BREATH) (test cod e = 51746) NEGATIVE Kwame GuzmanCOMPREHENSIVE METABOLIC [id number] 04:25:35* Test Item Value Reference Range Interpretation Comme nts GLUCOSE (test code = 2217) 70 MG/DL 70-99 BUN (test code = 2208) 17 MG/DL 8-23 CREATININE (test code = 2214) 0.73 MG/DL 0.80-1.40 L eGFR (2020 CKD-EPI) (test code = 06900) 100 ML/MIN/1.73 >60 CALC BUN/CREAT (test code = 2235) 23 RATIO 6-28 SODIUM (test code = 223) 139 MEQ/L 133-146 POTASSIUM (test code = 2228) 5.1 MEQ/L 3.5-5.4 CHLORIDE (test code = 2215) 103 MEQ/L 95-107 CARBON DIOXIDE (test code = 2205) 20 MEQ/L 19-31 CALCIUM (test code = 2208) 9.9 MG/DL 8.5-10.5 PROTEIN, TOTAL (test code = 2228) 7.8 G/DL 6.1-8.3 ALBUMIN (test code = 2200) 4.9 G/DL 3.5-5.2 CALC GLOBULIN (test code = 2239) 2.9 G/DL 1.9-3.7 CALC A/G RATIO (test code = 2233) 1.7 RATIO 1.0-2.6 BILIRUBIN, TOTAL (test code = 2206) 0.5 MG/DL See_Comment [Automated me ssage] The system which generated this result transmitted reference range: <=1.2. The reference range was not used to interpret this result as normal/abnormal. ALKALINE PHOSPHATASE (test code = 2203) 61 U/L 40-125 AST (test code = 221) 22 U/L 9-50 ALT (test code = 2219) 26 U/L 5-50 LIPID [id number] 04:25:35* Test Item Value Reference Range Interpretation Comme nts CHOLESTEROL (test code = 2210) 158 MG/DL <200 TRIGLYCERIDES (test code = 2232) 77 MG/DL <150 HDL CHOLESTEROL (test code = 2220) 53 MG/DL >39 CALC LDL CHOL (test code = 2237) 88 MG/DL <100 NOTE: CALCULATED LDL IS BASED ON HALI-SHIRLEY METHOD WHICHINCLUDES ADJUSTABLE TRIGLYCERIDE:VLDL CHOLESTEROL RATIO.THIS FACTOR VARIES BY MEASURED TRIGLYCERIDE AND NON-HDLCHOLESTEROL CONCENTRATIONS WITH INCREASED CALCULATED LDL SEENIN HIGHER TRIGLYCERIDE OR LOWER NON-HDL SPECIMENS. FOR MOREINFORMATION, SEE CLIENT ANNOUNCEMENT AT [email or web address] ([employer]) /CalcLDL-C RISK RATIO LDL/HDL (test code = 2238) 1.66 RATIO <3.55 [facility] has i mportant pathology staff changes effective 06/04/2022. New pathology staff will provide uninterrupted, excellent patient care and clinical consultation. See URL: [email or web address]. UNLESS OTHERWISE INDICATED, ALL TESTING PERFORMED AT [facility] [address] [place] [address] CLIA: [id number], CAP: [id number] LIPID [id number] 00:00:00* Test Item Value Reference Range Interpretation Comme nts CHOLESTEROL (test code = 2210) 158 MG/DL TRIGLYCERIDES (test code = 2232) 77 MG/DL HDL CHOLESTEROL (test code = 2220) 53 MG/DL CALC LDL CHOL (test code = 2237) 88 MG/DL RISK RATIO LDL/HDL (test cod e = 2238) 1.66 RATIO Kwame GuzmanCOMPREHENSIVE METABOLIC [id number] 00:00:00* Test Item Value Reference Range Interpretation Comme nts GLUCOSE (test code = 2217) 70 MG/DL BUN (test code = 2208) 17 MG/DL CREATININE (test code = 2214) 0.73 MG/DL eGFR (2020 CKD-EPI) (test code = 63289) 100 ML/MIN/1.73 CALC BUN/CREAT (test code = 2235) 23 RATIO SODIUM (test code = 2231) 139 MEQ/L POTASSIUM (test code = 2228) 5.1 MEQ/L CHLORIDE (test code = 2215) 103 MEQ/L CARBON DIOXIDE (test code = 2206) 20 MEQ/L CALCIUM (test code = 2209) 9.9 MG/DL PROTEIN, TOTAL (test code = 2229) 7.8 G/DL ALBUMIN (test code = 2201) 4.9 G/DL CALC GLOBULIN (test code = 2240) 2.9 G/DL CALC A/G RATIO (test code = 2234) 1.7 RATIO BILIRUBIN, TOTAL (test code = 2207) 0.5 MG/DL ALKALINE PHOSPHATASE (test code = 2204) 61 U/L AST (test code = 2218) 22 U/L ALT (test code = 2219) 26 U/L Kwame GuzmanLIPID [id number] 00:00:00* Test Item Value Reference Range Interpretation Comme nts CHOLESTEROL (test code = 2210) 158 MG/DL TRIGLYCERIDES (test code = 2232) 77 MG/DL HDL CHOLESTEROL (test code = 2220) 53 MG/DL CALC LDL CHOL (test code = 2237) 88 MG/DL RISK RATIO LDL/HDL (test cod e = 2238) 1.66 RATIO Kwame GuzmanCOMPREHENSIVE METABOLIC [id number] 00:00:00* Test Item Value Reference Range Interpretation Comme nts GLUCOSE (test code = 2217) 70 MG/DL BUN (test code = 2208) 17 MG/DL CREATININE (test code = 2214) 0.73 MG/DL eGFR (2020 CKD-EPI) (test code = 38420) 100 ML/MIN/1.73 CALC BUN/CREAT (test code = 2235) 23 RATIO SODIUM (test code = 2231) 139 MEQ/L POTASSIUM (test code = 2228) 5.1 MEQ/L CHLORIDE (test code = 2215) 103 MEQ/L CARBON DIOXIDE (test code = 2206) 20 MEQ/L CALCIUM (test code = 2209) 9.9 MG/DL PROTEIN, TOTAL (test code = 2229) 7.8 G/DL ALBUMIN (test code = 2201) 4.9 G/DL CALC GLOBULIN (test code = 2240) 2.9 G/DL CALC A/G RATIO (test code = 2234) 1.7 RATIO BILIRUBIN, TOTAL (test code = 2207) 0.5 MG/DL ALKALINE PHOSPHATASE (test code = 2204) 61 U/L AST (test code = 2218) 22 U/L ALT (test code = 2219) 26 U/L Kwame Reza AustinLIPID [id number] 00:00:00* Test Item Value Reference Range Interpretation Comme nts CHOLESTEROL (test code = 2210) 158 MG/DL TRIGLYCERIDES (test code = 2232) 77 MG/DL HDL CHOLESTEROL (test code = 2220) 53 MG/DL CALC LDL CHOL (test code = 2237) 88 MG/DL RISK RATIO LDL/HDL (test cod e = 2238) 1.66 RATIO Kwame GuzmanCOMPREHENSIVE METABOLIC [id number] 00:00:00* Test Item Value Reference Range Interpretation Comme nts GLUCOSE (test code = 2217) 70 MG/DL BUN (test code = 2208) 17 MG/DL CREATININE (test code = 2214) 0.73 MG/DL eGFR (2020 CKD-EPI) (test code = 72840) 100 ML/MIN/1.73 CALC BUN/CREAT (test code = 2235) 23 RATIO SODIUM (test code = 2231) 139 MEQ/L POTASSIUM (test code = 2228) 5.1 MEQ/L CHLORIDE (test code = 2215) 103 MEQ/L CARBON DIOXIDE (test code = 2206) 20 MEQ/L CALCIUM (test code = 2209) 9.9 MG/DL PROTEIN, TOTAL (test code = 2229) 7.8 G/DL ALBUMIN (test code = 2201) 4.9 G/DL CALC GLOBULIN (test code = 2240) 2.9 G/DL CALC A/G RATIO (test code = 2234) 1.7 RATIO BILIRUBIN, TOTAL (test code = 2207) 0.5 MG/DL ALKALINE PHOSPHATASE (test code = 2204) 61 U/L AST (test code = 2218) 22 U/L ALT (test code = 2219) 26 U/L Kwame Reza White EarthLIPID [id number] 00:00:00* Test Item Value Reference Range Interpretation Comme nts CHOLESTEROL (test code = 2210) 158 MG/DL TRIGLYCERIDES (test code = 2232) 77 MG/DL HDL CHOLESTEROL (test code = 2220) 53 MG/DL CALC LDL CHOL (test code = 2237) 88 MG/DL RISK RATIO LDL/HDL (test cod e = 2238) 1.66 RATIO Kwame GuzmanCOMPREHENSIVE METABOLIC [id number] 00:00:00* Test Item Value Reference Range Interpretation Comme nts GLUCOSE (test code = 2217) 70 MG/DL BUN (test code = 2208) 17 MG/DL CREATININE (test code = 2214) 0.73 MG/DL eGFR (2020 CKD-EPI) (test code = 65956) 100 ML/MIN/1.73 CALC BUN/CREAT (test code = 2235) 23 RATIO SODIUM (test code = 2231) 139 MEQ/L POTASSIUM (test code = 2228) 5.1 MEQ/L CHLORIDE (test code = 2215) 103 MEQ/L CARBON DIOXIDE (test code = 2206) 20 MEQ/L CALCIUM (test code = 2209) 9.9 MG/DL PROTEIN, TOTAL (test code = 2229) 7.8 G/DL ALBUMIN (test code = 2201) 4.9 G/DL CALC GLOBULIN (test code = 2240) 2.9 G/DL CALC A/G RATIO (test code = 2234) 1.7 RATIO BILIRUBIN, TOTAL (test code = 2207) 0.5 MG/DL ALKALINE PHOSPHATASE (test code = 2204) 61 U/L AST (test code = 2218) 22 U/L ALT (test code = 2219) 26 U/L Kwame Reza AustinHEMOGLOBIN [id number] 03:06:51* Test Item Value Reference Range Interpretation Comme [facility] HEMOGLOBIN A1c (test code = 48008) 8.4 % 4.2-5.6 H [employer] GUIDELINES FOR HGB A1C: PREDIABETES/INCREASED RISK . . . . . . . 5.7-6.4% DIAGNOSIS OF DIABETES . . . . . . . . . >=6.5% WITH CONFIRMATION OR APPROPRIATE SYMPTOMS NOTE: ASSAY MAY BE AFFECTED BY HEMOGLOBINOPATHIES (SICKLE CELL ANEMIA, S-C DISEASE, OTHERS) OR ARTIFICIALLY LOWERED BY DECREASED RED CELL SURVIVAL (HEMOLYTIC ANEMIAS, BLOOD LOSS, ETC.). CONSIDER ALTERNATE TESTING OR LABORATORY CONSULTATION. HEMOGLOBIN [id number] 00:00:00* Test Item Value Reference Range Interpretation Comme [facility] HEMOGLOBIN A1c (test code = 17822) 8.4 % Kwame Reza AustinHEMOGLOBIN [id number] 00:00:00* Test Item Value Reference Range Interpretation Comme [facility] HEMOGLOBIN A1c (test code = 61725) 8.4 % Kwame Reza AustinHEMOGLOBIN [id number] 00:00:00* Test Item Value Reference Range Interpretation Comme [facility] HEMOGLOBIN A1c (test code = 86265) 8.4 % Kwame Reza AustinHEMOGLOBIN [id number] 00:00:00* Test Item Value Reference Range Interpretation Comme [facility] HEMOGLOBIN A1c (test code = 69116) 8.4 % Kwame Reza AustinHEMOGLOBIN [id number] 05:14:47* Test Item Value Reference Range Interpretation Comme [facility] HEMOGLOBIN A1c (test code = 62670) 8.0 % 4.2-5.6 H [employer] GUIDELINES FOR HGB A1C: PREDIABETES/INCREASED RISK . . . . . . . 5.7-6.4% DIAGNOSIS OF DIABETES . . . . . . . . . >=6.5% WITH CONFIRMATION OR APPROPRIATE SYMPTOMS NOTE: ASSAY MAY BE AFFECTED BY HEMOGLOBINOPATHIES (SICKLE CELL ANEMIA, S-C DISEASE, OTHERS) OR ARTIFICIALLY LOWERED BY DECREASED RED CELL SURVIVAL (HEMOLYTIC ANEMIAS, BLOOD LOSS, ETC.). CONSIDER ALTERNATE TESTING OR LABORATORY CONSULTATION. UNLESS OTHERWISE INDICATED, ALL TESTING PERFORMED [facility] [employer] [facility] [employer] [address] [place] [id number] HOME HEALTH CLINICAL LIAISON: EV LYNN M.D. IA NUMBER [id number] [facility] [place]. [id number] ALBUMIN/CREATININE RATIO, URINE, [id number] 04:17:25* Test Item Value Reference Range Interpretation Comme nts CREATININE, URINE, RANDOM (test code = 2072) 255.5 MG/DL NOT ESTAB ALBUMIN, URINE, RANDOM (test code = 51207) 2.7 MG/DL NOT ESTAB CALC ALBUMIN/CREAT, RND (test code = 27231) 11 MG/G <30 Note: Albumin/Creatinine ratio reference interval reflects ADA and NKF guidelines. MICROALBUMIN/CREATININE, RANDOM AND [id number] 00:00:00* Test Item Value Reference Range Interpretation Comme nts CREATININE, URINE, RANDOM (t est code = 207) 255.5 MG/DL ALBUMIN, URINE, RANDOM (test code = 67030) 2.7 MG/DL CALC ALBUMIN/CREAT, RND (monica t code = 97288) 11 MG/G Kwame Reza AustinHEMOGLOBIN [id number] 00:00:00* Test Item Value Reference Range Interpretation Comme nts HEMOGLOBIN A1c (test code = 45692) 8.0 % Kwame Reza AustinMICROALBUMIN/CREATININE, RANDOM AND [id number] 00:00:00* Test Item Value Reference Range Interpretation Comme nts CREATININE, URINE, RANDOM (t est code = 207) 255.5 MG/DL ALBUMIN, URINE, RANDOM (test code = 17861) 2.7 MG/DL CALC ALBUMIN/CREAT, RND (monica t code = 92198) 11 MG/G Kwame Reza AustinHEMOGLOBIN [id number] 00:00:00* Test Item Value Reference Range Interpretation Comme nts HEMOGLOBIN A1c (test code = 17705) 8.0 % Kwame Reza AustinMICROALBUMIN/CREATININE, RANDOM AND [id number] 00:00:00* Test Item Value Reference Range Interpretation Comme nts CREATININE, URINE, RANDOM (t est code = 2072) 255.5 MG/DL ALBUMIN, URINE, RANDOM (test code = 24748) 2.7 MG/DL CALC ALBUMIN/CREAT, RND (monica t code = 13183) 11 MG/G Kwame Reza AustinHEMOGLOBIN [id number] 00:00:00* Test Item Value Reference Range Interpretation Comme reyes HEMOGLOBIN A1c (test code = 86005) 8.0 % Kwame Reza AustinMICROALBUMIN/CREATININE, RANDOM AND [id number] 00:00:00* Test Item Value Reference Range Interpretation Comme nts CREATININE, URINE, RANDOM (t est code = 207) 255.5 MG/DL ALBUMIN, URINE, RANDOM (test code = 25451) 2.7 MG/DL CALC ALBUMIN/CREAT, RND (monica t code = 06619) 11 MG/G Kwame Reza AustinHEMOGLOBIN [id number] 00:00:00* Test Item Value Reference Range Interpretation Comme reyes HEMOGLOBIN A1c (test code = 91671) 8.0 % Kwame GuzmanHEMOGLOBIN [id number] 09:49:57* Test Item Value Reference Range Interpretation Comme reyes HEMOGLOBIN A1c (test code = 73494) 7.6 % 4.2-5.6 H [employer] GUIDELINES FOR HGB A1C: PREDIABETES/INCREASED RISK . . . . . . . 5.7-6.4% DIAGNOSIS OF DIABETES . . . . . . . . . >=6.5% WITH CONFIRMATION OR APPROPRIATE SYMPTOMS NOTE: ASSAY MAY BE AFFECTED BY HEMOGLOBINOPATHIES (SICKLE CELL ANEMIA, S-C DISEASE, OTHERS) OR ARTIFICIALLY LOWERED BY DECREASED RED CELL SURVIVAL (HEMOLYTIC ANEMIAS, BLOOD LOSS, ETC.). CONSIDER ALTERNATE TESTING OR LABORATORY CONSULTATION. COMPREHENSIVE METABOLIC [id number] 04:03:56* Test Item Value Reference Range Interpretation Comme nts GLUCOSE (test code = 2217) 149 MG/DL 70-99 H BUN (test code = 2208) 23 MG/DL 8-23 CREATININE (test code = 2214) 0.78 MG/DL 0.80-1.40 L eGFR (2020 CKD-EPI) (test code = ) 98 ML/MIN/1.73 >60 CALC BUN/CREAT (test code = 2234) 29 RATIO 6-28 H SODIUM (test code = 2230) 140 MEQ/L 133-146 POTASSIUM (test code = 2227) 4.1 MEQ/L 3.5-5.4 CHLORIDE (test code = 2214) 103 MEQ/L 95-107 CARBON DIOXIDE (test code = 2205) 23 MEQ/L 19-31 CALCIUM (test code = 2208) 9.6 MG/DL 8.5-10.5 PROTEIN, TOTAL (test code = 2228) 7.1 G/DL 6.1-8.3 ALBUMIN (test code = 2200) 4.4 G/DL 3.5-5.2 CALC GLOBULIN (test code = 2239) 2.7 G/DL 1.9-3.7 CALC A/G RATIO (test code = 2233) 1.6 RATIO 1.0-2.6 BILIRUBIN, TOTAL (test code = 2206) 0.5 MG/DL See_Comment [Automated me ssage] The system which generated this result transmitted reference range: <=1.2. The reference range was not used to interpret this result as normal/abnormal. ALKALINE PHOSPHATASE (test code = 2203) 50 U/L 40-125 AST (test code = 2217) 20 U/L 9-50 ALT (test code = 2218) 24 U/L 5-50 LIPID [id number] 04:03:56* Test Item Value Reference Range Interpretation Comme nts CHOLESTEROL (test code = 2209) 149 MG/DL <200 TRIGLYCERIDES (test code = 2231) 137 MG/DL <150 HDL CHOLESTEROL (test code = 2219) 47 MG/DL >39 CALC LDL CHOL (test code = 2236) 78 MG/DL <100 NOTE: CALCULATED LDL IS BASED ON HALI-SHIRLEY METHOD WHICHINCLUDES ADJUSTABLE TRIGLYCERIDE:VLDL CHOLESTEROL RATIO.THIS FACTOR VARIES BY MEASURED TRIGLYCERIDE AND NON-HDLCHOLESTEROL CONCENTRATIONS WITH INCREASED CALCULATED LDL SEENIN HIGHER TRIGLYCERIDE OR LOWER NON-HDL SPECIMENS. FOR MOREINFORMATION, SEE CLIENT ANNOUNCEMENT AT [email or web address] RISK RATIO LDL/HDL (test code = 2237) 1.66 RATIO <3.55 UNLESS OTHERW ISE INDICATED, ALL TESTING PERFORMED [facility] [address] [place] [id number] HOME HEALTH CLINICAL LIAISON: EV LYNN M.D. CLIA NUMBER [id number] [facility] [place]. [id number] HEMOGLOBIN [id number] 00:00:00* Test Item Value Reference Range Interpretation Comme nts HEMOGLOBIN A1c (test code = 52858) 7.6 % Kwame GuzmanCOMPREHENSIVE METABOLIC [id number] 00:00:00* Test Item Value Reference Range Interpretation Comme nts GLUCOSE (test code = 2217) 149 MG/DL BUN (test code = 2208) 23 MG/DL CREATININE (test code = 2214) 0.78 MG/DL eGFR (2020 CKD-EPI) (test co de = 58928) 98 ML/MIN/1.73 CALC BUN/CREAT (test code = 2235) 29 RATIO SODIUM (test code = 2231) 140 MEQ/L POTASSIUM (test code = 2228) 4.1 MEQ/L CHLORIDE (test code = 2215) 103 MEQ/L CARBON DIOXIDE (test code = 2206) 23 MEQ/L CALCIUM (test code = 2209) 9.6 MG/DL PROTEIN, TOTAL (test code = 2229) 7.1 G/DL ALBUMIN (test code = 2201) 4.4 G/DL CALC GLOBULIN (test code = 2240) 2.7 G/DL CALC A/G RATIO (test code = 2234) 1.6 RATIO BILIRUBIN, TOTAL (test code = 2207) 0.5 MG/DL ALKALINE PHOSPHATASE (test code = 2204) 50 U/L AST (test code = 2218) 20 U/L ALT (test code = 2219) 24 U/L Kwame GuzmanLIPID [id number] 00:00:00* Test Item Value Reference Range Interpretation Comme nts CHOLESTEROL (test code = 2210) 149 MG/DL TRIGLYCERIDES (test code = 2232) 137 MG/DL HDL CHOLESTEROL (test code = 2220) 47 MG/DL CALC LDL CHOL (test code = 2237) 78 MG/DL RISK RATIO LDL/HDL (test cod e = 2238) 1.66 RATIO Kwame GuzmanHEMOGLOBIN [id number] 00:00:00* Test Item Value Reference Range Interpretation Comme nts HEMOGLOBIN A1c (test code = 39366) 7.6 % Kwame GuzmanCOMPREHENSIVE METABOLIC [id number] 00:00:00* Test Item Value Reference Range Interpretation Comme nts GLUCOSE (test code = 2217) 149 MG/DL BUN (test code = 2208) 23 MG/DL CREATININE (test code = 2214) 0.78 MG/DL eGFR (2020 CKD-EPI) (test co de = 73503) 98 ML/MIN/1.73 CALC BUN/CREAT (test code = 2235) 29 RATIO SODIUM (test code = 2231) 140 MEQ/L POTASSIUM (test code = 2228) 4.1 MEQ/L CHLORIDE (test code = 2215) 103 MEQ/L CARBON DIOXIDE (test code = 2206) 23 MEQ/L CALCIUM (test code = 2209) 9.6 MG/DL PROTEIN, TOTAL (test code = 2229) 7.1 G/DL ALBUMIN (test code = 2201) 4.4 G/DL CALC GLOBULIN (test code = 2240) 2.7 G/DL CALC A/G RATIO (test code = 2234) 1.6 RATIO BILIRUBIN, TOTAL (test code = 2207) 0.5 MG/DL ALKALINE PHOSPHATASE (test code = 2204) 50 U/L AST (test code = 2218) 20 U/L ALT (test code = 2219) 24 U/L Kwame GuzmanLIPID [id number] 00:00:00* Test Item Value Reference Range Interpretation Comme nts CHOLESTEROL (test code = 2210) 149 MG/DL TRIGLYCERIDES (test code = 2232) 137 MG/DL HDL CHOLESTEROL (test code = 2220) 47 MG/DL CALC LDL CHOL (test code = 2237) 78 MG/DL RISK RATIO LDL/HDL (test cod e = 2238) 1.66 RATIO Kwame GuzmanHEMOGLOBIN [id number] 00:00:00* Test Item Value Reference Range Interpretation Comme nts HEMOGLOBIN A1c (test code = 50382) 7.6 % Kwame Reza AustinCOMPREHENSIVE METABOLIC [id number] 00:00:00* Test Item Value Reference Range Interpretation Comme nts GLUCOSE (test code = 2217) 149 MG/DL BUN (test code = 2208) 23 MG/DL CREATININE (test code = 2214) 0.78 MG/DL eGFR (2020 CKD-EPI) (test co de = 26955) 98 ML/MIN/1.73 CALC BUN/CREAT (test code = 2235) 29 RATIO SODIUM (test code = 2231) 140 MEQ/L POTASSIUM (test code = 2228) 4.1 MEQ/L CHLORIDE (test code = 2215) 103 MEQ/L CARBON DIOXIDE (test code = 2206) 23 MEQ/L CALCIUM (test code = 2209) 9.6 MG/DL PROTEIN, TOTAL (test code = 2229) 7.1 G/DL ALBUMIN (test code = 2201) 4.4 G/DL CALC GLOBULIN (test code = 2240) 2.7 G/DL CALC A/G RATIO (test code = 2234) 1.6 RATIO BILIRUBIN, TOTAL (test code = 2207) 0.5 MG/DL ALKALINE PHOSPHATASE (test code = 2204) 50 U/L AST (test code = 2218) 20 U/L ALT (test code = 2219) 24 U/L Kwame Reza White EarthLIPID [id number] 00:00:00* Test Item Value Reference Range Interpretation Comme nts CHOLESTEROL (test code = 2210) 149 MG/DL TRIGLYCERIDES (test code = 2232) 137 MG/DL HDL CHOLESTEROL (test code = 2220) 47 MG/DL CALC LDL CHOL (test code = 2237) 78 MG/DL RISK RATIO LDL/HDL (test cod e = 2238) 1.66 RATIO Kwame GuzmanHEMOGLOBIN [id number] 00:00:00* Test Item Value Reference Range Interpretation Comme nts HEMOGLOBIN A1c (test code = 25077) 7.6 % Kwame Reza ThomasCOMPREHENSIVE METABOLIC [id number] 00:00:00* Test Item Value Reference Range Interpretation Comme nts GLUCOSE (test code = 2217) 149 MG/DL BUN (test code = 2208) 23 MG/DL CREATININE (test code = 2214) 0.78 MG/DL eGFR (2020 CKD-EPI) (test co de = 32534) 98 ML/MIN/1.73 CALC BUN/CREAT (test code = 2235) 29 RATIO SODIUM (test code = 2231) 140 MEQ/L POTASSIUM (test code = 2228) 4.1 MEQ/L CHLORIDE (test code = 2215) 103 MEQ/L CARBON DIOXIDE (test code = 2206) 23 MEQ/L CALCIUM (test code = 2209) 9.6 MG/DL PROTEIN, TOTAL (test code = 2229) 7.1 G/DL ALBUMIN (test code = 2201) 4.4 G/DL CALC GLOBULIN (test code = 2240) 2.7 G/DL CALC A/G RATIO (test code = 2234) 1.6 RATIO BILIRUBIN, TOTAL (test code = 2207) 0.5 MG/DL ALKALINE PHOSPHATASE (test code = 2204) 50 U/L AST (test code = 2218) 20 U/L ALT (test code = 2219) 24 U/L Kwame GuzmanLIPID [id number] 00:00:00* Test Item Value Reference Range Interpretation Comme nts CHOLESTEROL (test code = 2210) 149 MG/DL TRIGLYCERIDES (test code = 2232) 137 MG/DL HDL CHOLESTEROL (test code = 2220) 47 MG/DL CALC LDL CHOL (test code = 2237) 78 MG/DL RISK RATIO LDL/HDL (test cod e = 2238) 1.66 RATIO Kwame GuzmanLIPID [id number] 00:00:00* Test Item Value Reference Range Interpretation Comme nts CHOLESTEROL (test code = 2210) 151 MG/DL TRIGLYCERIDES (test code = 2232) 55 MG/DL HDL CHOLESTEROL (test code = 2220) 52 MG/DL CALC LDL CHOL (test code = 2237) 85 MG/DL RISK RATIO LDL/HDL (test cod e = 2238) 1.63 RATIO Kwame GuzmanCOMPREHENSIVE METABOLIC [id number] 00:00:00* Test Item Value Reference Range Interpretation Comme nts GLUCOSE (test code = 2217) 112 MG/DL BUN (test code = 2208) 25 MG/DL CREATININE (test code = 2214) 0.69 MG/DL eGFR AMER. (test cod e = 74895) 115 ML/MIN/1.73 eGFR NON- AMER. (test code = 36258) 100 ML/MIN/1.73 CALC BUN/CREAT (test code = 2235) 36 RATIO SODIUM (test code = 2231) 145 MEQ/L POTASSIUM (test code = 2228) 4.3 MEQ/L CHLORIDE (test code = 2215) 107 MEQ/L CARBON DIOXIDE (test code = 2206) 27 MEQ/L CALCIUM (test code = 2209) 9.6 MG/DL PROTEIN, TOTAL (test code = 2229) 7.5 G/DL ALBUMIN (test code = 2201) 5.0 G/DL CALC GLOBULIN (test code = 2240) 2.5 G/DL CALC A/G RATIO (test code = 2234) 2.0 RATIO BILIRUBIN, TOTAL (test code = 2207) 0.7 MG/DL ALKALINE PHOSPHATASE (test code = 2204) 47 U/L AST (test code = 2218) 19 U/L ALT (test code = 2219) 20 U/L Kwame Reza [place] EarthLIPID [id number] 00:00:00* Test Item Value Reference Range Interpretation Comme nts CHOLESTEROL (test code = 2210) 151 MG/DL TRIGLYCERIDES (test code = 2232) 55 MG/DL HDL CHOLESTEROL (test code = 2220) 52 MG/DL CALC LDL CHOL (test code = 2237) 85 MG/DL RISK RATIO LDL/HDL (test cod e = 2238) 1.63 RATIO Kwame GuzmanCOMPREHENSIVE METABOLIC [id number] 00:00:00* Test Item Value Reference Range Interpretation Comme nts GLUCOSE (test code = 2217) 112 MG/DL BUN (test code = 2208) 25 MG/DL CREATININE (test code = 2214) 0.69 MG/DL eGFR AMER. (test cod e = 50532) 115 ML/MIN/1.73 eGFR NON- AMER. (test code = 34526) 100 ML/MIN/1.73 CALC BUN/CREAT (test code = 2235) 36 RATIO SODIUM (test code = 2231) 145 MEQ/L POTASSIUM (test code = 2228) 4.3 MEQ/L CHLORIDE (test code = 2215) 107 MEQ/L CARBON DIOXIDE (test code = 6) 27 MEQ/L CALCIUM (test code = 2209) 9.6 MG/DL PROTEIN, TOTAL (test code = 2229) 7.5 G/DL ALBUMIN (test code = 2201) 5.0 G/DL CALC GLOBULIN (test code = 2240) 2.5 G/DL CALC A/G RATIO (test code = 2234) 2.0 RATIO BILIRUBIN, TOTAL (test code = 2207) 0.7 MG/DL ALKALINE PHOSPHATASE (test code = 2204) 47 U/L AST (test code = 2218) 19 U/L ALT (test code = 2219) 20 U/L Kwame Reza AustinLIPID [id number] 00:00:00* Test Item Value Reference Range Interpretation Comme nts CHOLESTEROL (test code = 2210) 151 MG/DL TRIGLYCERIDES (test code = 2232) 55 MG/DL HDL CHOLESTEROL (test code = 2220) 52 MG/DL CALC LDL CHOL (test code = 2237) 85 MG/DL RISK RATIO LDL/HDL (test cod e = 2238) 1.63 RATIO Kwame GuzmanCOMPREHENSIVE METABOLIC [id number] 00:00:00* Test Item Value Reference Range Interpretation Comme nts GLUCOSE (test code = 2217) 112 MG/DL BUN (test code = 2208) 25 MG/DL CREATININE (test code = 2214) 0.69 MG/DL eGFR AMER. (test cod e = 99104) 115 ML/MIN/1.73 eGFR NON- AMER. (test code = 05605) 100 ML/MIN/1.73 CALC BUN/CREAT (test code = 2235) 36 RATIO SODIUM (test code = 2231) 145 MEQ/L POTASSIUM (test code = 2228) 4.3 MEQ/L CHLORIDE (test code = 2215) 107 MEQ/L CARBON DIOXIDE (test code = 2206) 27 MEQ/L CALCIUM (test code = 2209) 9.6 MG/DL PROTEIN, TOTAL (test code = 2229) 7.5 G/DL ALBUMIN (test code = 2201) 5.0 G/DL CALC GLOBULIN (test code = 2240) 2.5 G/DL CALC A/G RATIO (test code = 2234) 2.0 RATIO BILIRUBIN, TOTAL (test code = 2207) 0.7 MG/DL ALKALINE PHOSPHATASE (test code = 2204) 47 U/L AST (test code = 2218) 19 U/L ALT (test code = 2219) 20 U/L Kwame Reza AustinLIPID [id number] 00:00:00* Test Item Value Reference Range Interpretation Comme nts CHOLESTEROL (test code = 2210) 151 MG/DL TRIGLYCERIDES (test code = 2232) 55 MG/DL HDL CHOLESTEROL (test code = 2220) 52 MG/DL CALC LDL CHOL (test code = 2237) 85 MG/DL RISK RATIO LDL/HDL (test cod e = 2238) 1.63 RATIO Kwame GuzmanCOMPREHENSIVE METABOLIC [id number] 00:00:00* Test Item Value Reference Range Interpretation Comme nts GLUCOSE (test code = 2217) 112 MG/DL BUN (test code = 2208) 25 MG/DL CREATININE (test code = 2214) 0.69 MG/DL eGFR AMER. (test cod e = 67901) 115 ML/MIN/1.73 eGFR NON- AMER. (test code = 31241) 100 ML/MIN/1.73 CALC BUN/CREAT (test code = 2235) 36 RATIO SODIUM (test code = 2231) 145 MEQ/L POTASSIUM (test code = 2228) 4.3 MEQ/L CHLORIDE (test code = 2215) 107 MEQ/L CARBON DIOXIDE (test code = 2206) 27 MEQ/L CALCIUM (test code = 2209) 9.6 MG/DL PROTEIN, TOTAL (test code = 2229) 7.5 G/DL ALBUMIN (test code = 2201) 5.0 G/DL CALC GLOBULIN (test code = 2240) 2.5 G/DL CALC A/G RATIO (test code = 2234) 2.0 RATIO BILIRUBIN, TOTAL (test code = 2207) 0.7 MG/DL ALKALINE PHOSPHATASE (test code = 2204) 47 U/L AST (test code = 2218) 19 U/L ALT (test code = 2219) 20 U/L Kwame Reza AustinHEMOGLOBIN [id number] 00:00:00* Test Item Value Reference Range Interpretation Comme nts HEMOGLOBIN A1c (test code = 98000) 7.4 % Kwame Reza AustinHEMOGLOBIN [id number] 00:00:00* Test Item Value Reference Range Interpretation Comme nts HEMOGLOBIN A1c (test code = 73322) 7.4 % Kwame Reza AustinHEMOGLOBIN [id number] 00:00:00* Test Item Value Reference Range Interpretation Comme nts HEMOGLOBIN A1c (test code = 88989) 7.4 % Kwame Reza AustinHEMOGLOBIN [id number] 00:00:00* Test Item Value Reference Range Interpretation Comme nts HEMOGLOBIN A1c (test code = 10944) 7.4 % Kwame GuzmanLIVER (HEPATIC) FUNCTION [id number] 00:00:00* Test Item Value Reference Range Interpretation Comme nts PROTEIN, TOTAL (test code = 2229) 6.9 G/DL ALBUMIN (test code = 2201) 4.5 G/DL BILIRUBIN, TOTAL (test code = 2207) 0.7 MG/DL BILIRUBIN, DIRECT (test code = 2022) 0.2 MG/DL ALKALINE PHOSPHATASE (test c ode = 2204) 51 U/L AST (test code = 2218) 19 U/L ALT (test code = 2219) 21 U/L Kwame GuzmanLIVER (HEPATIC) FUNCTION [id number] 00:00:00* Test Item Value Reference Range Interpretation Comme nts PROTEIN, TOTAL (test code = 2229) 6.9 G/DL ALBUMIN (test code = 2201) 4.5 G/DL BILIRUBIN, TOTAL (test code = 2207) 0.7 MG/DL BILIRUBIN, DIRECT (test code = 2022) 0.2 MG/DL ALKALINE PHOSPHATASE (test c ode = 2204) 51 U/L AST (test code = 2218) 19 U/L ALT (test code = 2219) 21 U/L Kwame GuzmanLIVER (HEPATIC) FUNCTION [id number] 00:00:00* Test Item Value Reference Range Interpretation Comme nts PROTEIN, TOTAL (test code = 2229) 6.9 G/DL ALBUMIN (test code = 2201) 4.5 G/DL BILIRUBIN, TOTAL (test code = 2207) 0.7 MG/DL BILIRUBIN, DIRECT (test code = 2022) 0.2 MG/DL ALKALINE PHOSPHATASE (test c ode = 2204) 51 U/L AST (test code = 2218) 19 U/L ALT (test code = 2219) 21 U/L Kwame GuzmanLIVER (HEPATIC) FUNCTION [id number] 00:00:00* Test Item Value Reference Range Interpretation Comme nts PROTEIN, TOTAL (test code = 2229) 6.9 G/DL ALBUMIN (test code = 2201) 4.5 G/DL BILIRUBIN, TOTAL (test code = 2207) 0.7 MG/DL BILIRUBIN, DIRECT (test code = 2022) 0.2 MG/DL ALKALINE PHOSPHATASE (test c ode = 2204) 51 U/L AST (test code = 2218) 19 U/L ALT (test code = 2219) 21 U/L Kwame F ThomasLIVER (HEPATIC) FUNCTION [id number] 00:00:00* Test Item Value Reference Range Interpretation Comme nts PROTEIN, TOTAL (test code = 2229) 6.8 G/DL ALBUMIN (test code = 2201) 4.5 G/DL BILIRUBIN, TOTAL (test code = 2207) 0.5 MG/DL BILIRUBIN, DIRECT (test code = 2021) 0.2 MG/DL ALKALINE PHOSPHATASE (test c ode = 2204) 50 U/L AST (test code = 2218) 19 U/L ALT (test code = 2219) 26 U/L Kwame F AustinLIVER (HEPATIC) FUNCTION [id number] 00:00:00* Test Item Value Reference Range Interpretation Comme nts PROTEIN, TOTAL (test code = 2229) 6.8 G/DL ALBUMIN (test code = 2201) 4.5 G/DL BILIRUBIN, TOTAL (test code = 2207) 0.5 MG/DL BILIRUBIN, DIRECT (test code = 2021) 0.2 MG/DL ALKALINE PHOSPHATASE (test c ode = 2204) 50 U/L AST (test code = 2218) 19 U/L ALT (test code = 2219) 26 U/L Kwame F AustinLIVER (HEPATIC) FUNCTION [id number] 00:00:00* Test Item Value Reference Range Interpretation Comme nts PROTEIN, TOTAL (test code = 2229) 6.8 G/DL ALBUMIN (test code = 2201) 4.5 G/DL BILIRUBIN, TOTAL (test code = 2207) 0.5 MG/DL BILIRUBIN, DIRECT (test code = 202) 0.2 MG/DL ALKALINE PHOSPHATASE (test c ode = 2204) 50 U/L AST (test code = 2218) 19 U/L ALT (test code = 2219) 26 U/L Kwame F AustinLIVER (HEPATIC) FUNCTION [id number] 00:00:00* Test Item Value Reference Range Interpretation Comme nts PROTEIN, TOTAL (test code = 2229) 6.8 G/DL ALBUMIN (test code = 2201) 4.5 G/DL BILIRUBIN, TOTAL (test code = 2207) 0.5 MG/DL BILIRUBIN, DIRECT (test code = 2021) 0.2 MG/DL ALKALINE PHOSPHATASE (test c ode = 2204) 50 U/L AST (test code = 2218) 19 U/L ALT (test code = 2219) 26 U/L Kwame Reza AustinMICROALBUMIN, [id number] 00:00:00* Test Item Value Reference Range Interpretation Comme nts ALBUMIN, URINE, RANDOM (test code = 24726) 0.6 MG/DL Kwame Reza AustinMICROALBUMIN, [id number] 00:00:00* Test Item Value Reference Range Interpretation Comme nts ALBUMIN, URINE, RANDOM (test code = 82341) 0.6 MG/DL Kwame Reza AustinMICROALBUMIN, [id number] 00:00:00* Test Item Value Reference Range Interpretation Comme nts ALBUMIN, URINE, RANDOM (test code = 91200) 0.6 MG/DL Kwame Reza AustinMICROALBUMIN, [id number] 00:00:00* Test Item Value Reference Range Interpretation Comme nts ALBUMIN, URINE, RANDOM (test code = 40883) 0.6 MG/DL Kwmae Reza AustinLIPID [id number] 00:00:00* Test Item Value Reference Range Interpretation Comme nts CHOLESTEROL (test code = 2210) 222 MG/DL TRIGLYCERIDES (test code = 2232) 103 MG/DL HDL CHOLESTEROL (test code = 2220) 47 MG/DL CALC LDL CHOL (test code = 2237) 153 MG/DL RISK RATIO LDL/HDL (test cod e = 2238) 3.26 RATIO Kwame Reza AustinCOMPREHENSIVE METABOLIC [id number] 00:00:00* Test Item Value Reference Range Interpretation Comme nts GLUCOSE (test code = 2217) 111 MG/DL BUN (test code = 2208) 16 MG/DL CREATININE (test code = 2214) 0.73 MG/DL eGFR AMER. (test cod e = 89971) 113 ML/MIN/1.73 eGFR NON- AMER. (test code = 53076) 97 ML/MIN/1.73 CALC BUN/CREAT (test code = 2235) 22 RATIO SODIUM (test code = 2231) 142 MEQ/L POTASSIUM (test code = 2228) 4.2 MEQ/L CHLORIDE (test code = 2215) 105 MEQ/L CARBON DIOXIDE (test code = 2206) 24 MEQ/L CALCIUM (test code = 2209) 9.3 MG/DL PROTEIN, TOTAL (test code = 2229) 7.8 G/DL ALBUMIN (test code = 2201) 4.8 G/DL CALC GLOBULIN (test code = 2240) 3.0 G/DL CALC A/G RATIO (test code = 2234) 1.6 RATIO BILIRUBIN, TOTAL (test code = 2207) 0.8 MG/DL ALKALINE PHOSPHATASE (test code = 2204) 51 U/L AST (test code = 221) 18 U/L ALT (test code = 2219) 21 U/L Kwame GuzmanLIPID [id number] 00:00:00* Test Item Value Reference Range Interpretation Comme nts CHOLESTEROL (test code = 2210) 222 MG/DL TRIGLYCERIDES (test code = 2232) 103 MG/DL HDL CHOLESTEROL (test code = 2220) 47 MG/DL CALC LDL CHOL (test code = 2237) 153 MG/DL RISK RATIO LDL/HDL (test cod e = 2238) 3.26 RATIO Kwame GuzmanCOMPREHENSIVE METABOLIC [id number] 00:00:00* Test Item Value Reference Range Interpretation Comme nts GLUCOSE (test code = 2217) 111 MG/DL BUN (test code = 2208) 16 MG/DL CREATININE (test code = 2214) 0.73 MG/DL eGFR AMER. (test cod e = 30034) 113 ML/MIN/1.73 eGFR NON- AMER. (test code = 66486) 97 ML/MIN/1.73 CALC BUN/CREAT (test code = 2235) 22 RATIO SODIUM (test code = 2231) 142 MEQ/L POTASSIUM (test code = 2228) 4.2 MEQ/L CHLORIDE (test code = 2215) 105 MEQ/L CARBON DIOXIDE (test code = 2206) 24 MEQ/L CALCIUM (test code = 2209) 9.3 MG/DL PROTEIN, TOTAL (test code = 2229) 7.8 G/DL ALBUMIN (test code = 2201) 4.8 G/DL CALC GLOBULIN (test code = 2240) 3.0 G/DL CALC A/G RATIO (test code = 2234) 1.6 RATIO BILIRUBIN, TOTAL (test code = 2207) 0.8 MG/DL ALKALINE PHOSPHATASE (test code = 2204) 51 U/L AST (test code = 2218) 18 U/L ALT (test code = 2219) 21 U/L Kwame GuzmanLIPID [id number] 00:00:00* Test Item Value Reference Range Interpretation Comme nts CHOLESTEROL (test code = 2210) 222 MG/DL TRIGLYCERIDES (test code = 2232) 103 MG/DL HDL CHOLESTEROL (test code = 2220) 47 MG/DL CALC LDL CHOL (test code = 2237) 153 MG/DL RISK RATIO LDL/HDL (test cod e = 2238) 3.26 RATIO Kwame GuzmanCOMPREHENSIVE METABOLIC [id number] 00:00:00* Test Item Value Reference Range Interpretation Comme nts GLUCOSE (test code = 2217) 111 MG/DL BUN (test code = 2208) 16 MG/DL CREATININE (test code = 2214) 0.73 MG/DL eGFR AMER. (test cod e = 63025) 113 ML/MIN/1.73 eGFR NON- AMER. (test code = 90276) 97 ML/MIN/1.73 CALC BUN/CREAT (test code = 2235) 22 RATIO SODIUM (test code = 2231) 142 MEQ/L POTASSIUM (test code = 2228) 4.2 MEQ/L CHLORIDE (test code = 2215) 105 MEQ/L CARBON DIOXIDE (test code = 2206) 24 MEQ/L CALCIUM (test code = 2209) 9.3 MG/DL PROTEIN, TOTAL (test code = 2229) 7.8 G/DL ALBUMIN (test code = 2201) 4.8 G/DL CALC GLOBULIN (test code = 2240) 3.0 G/DL CALC A/G RATIO (test code = 2234) 1.6 RATIO BILIRUBIN, TOTAL (test code = 2207) 0.8 MG/DL ALKALINE PHOSPHATASE (test code = 2204) 51 U/L AST (test code = 2218) 18 U/L ALT (test code = 2219) 21 U/L Kwame Reza AustinLIPID [id number] 00:00:00* Test Item Value Reference Range Interpretation Comme nts CHOLESTEROL (test code = 2210) 222 MG/DL TRIGLYCERIDES (test code = 2232) 103 MG/DL HDL CHOLESTEROL (test code = 2220) 47 MG/DL CALC LDL CHOL (test code = 2237) 153 MG/DL RISK RATIO LDL/HDL (test cod e = 2238) 3.26 RATIO Kwame GuzmanCOMPREHENSIVE METABOLIC [id number] 00:00:00* Test Item Value Reference Range Interpretation Comme nts GLUCOSE (test code = 2217) 111 MG/DL BUN (test code = 2208) 16 MG/DL CREATININE (test code = 2214) 0.73 MG/DL eGFR AMER. (test cod e = 92560) 113 ML/MIN/1.73 eGFR NON- AMER. (test code = 47080) 97 ML/MIN/1.73 CALC BUN/CREAT (test code = 2235) 22 RATIO SODIUM (test code = 2231) 142 MEQ/L POTASSIUM (test code = 2228) 4.2 MEQ/L CHLORIDE (test code = 2215) 105 MEQ/L CARBON DIOXIDE (test code = 2206) 24 MEQ/L CALCIUM (test code = 2209) 9.3 MG/DL PROTEIN, TOTAL (test code = 2229) 7.8 G/DL ALBUMIN (test code = 2201) 4.8 G/DL CALC GLOBULIN (test code = 2240) 3.0 G/DL CALC A/G RATIO (test code = 2234) 1.6 RATIO BILIRUBIN, TOTAL (test code = 2207) 0.8 MG/DL ALKALINE PHOSPHATASE (test code = 2204) 51 U/L AST (test code = 2218) 18 U/L ALT (test code = 2219) 21 U/L Kwame GuzmanHEMOGLOBIN [id number] 00:00:00* Test Item Value Reference Range Interpretation Comme reyes HEMOGLOBIN A1c (test code = 87809) 6.6 % Kwame Reza AustinHEMOGLOBIN [id number] 00:00:00* Test Item Value Reference Range Interpretation Comme reyes HEMOGLOBIN A1c (test code = 98363) 6.6 % Kwame GuzmanHEMOGLOBIN [id number] 00:00:00* Test Item Value Reference Range Interpretation Comme reyes HEMOGLOBIN A1c (test code = 24355) 6.6 % Kwame GuzmanHEMOGLOBIN [id number] 00:00:00* Test Item Value Reference Range Interpretation Comme nts HEMOGLOBIN A1c (test code = 93659) 6.6 % Kwame F Thomas Notes Date/Time Note Provider Source Kwame Alejandre [facility]2024-09-19 00:00:00 Kwame Alejandre [facility]2024-08-23 00:00:00 Kwame Alejandre [facility]2024-06-19 00:00:00 Kwame FJabari [facility]
--- NOTE | 2024-05-27 11:02 | RAD REPORT ---
EXAMINATION: US LEFT LOWER EXTREMITY VENOUS DOPPLER CLINICAL INDICATION: PAIN TECHNIQUE: Complete bilateral duplex sonography of the LEFT lower extremity veins was performed. The examination included compression for vein patency, color Doppler imaging and flow augmentation in response to distal compression of the distal external iliac, common femoral, femoral, popliteal, tibi al, and great and small saphenous veins. COMPARISON: No prior exam. FINDINGS: Duplex sonography testing of the veins of the LEFT lower extremity was performed. Color flow imaging shows all veins to be compressible with [id number] color filling. Pulsatile and phasic flow is present within all lower extremity deep and superficial veins examined. IMPRESSION: There is no deep vein or superficial vein thrombosis.
[2024-05-27 11:29] LABS: Absolute Basophils 0.1 K/uL (0-0.5); Absolute Eosinophils 0.1 K/uL (0-0.5); Absolute Lymphocytes (CBC) 1.9 K/uL (0.7-4.9); Absolute Monocytes 0.4 K/uL (0.1-1.3); Absolute Neutrophil 3.4 K/uL (1.8-8.0); Basophils % 1.1 % (0-1.3); Eosinophils % 2.4 % (0-4.4); Hematocrit 43.5 % (39.6-49.0); Hemoglobin 14.8 g/dL (13.6-17.9); Lymphocytes % 31.6 % (15.3-44.8); MCH 30.7 pg (27.0-35.0); MCHC 34.1 g/dL (32.0-36.0); MCV 90.1 fL (80-100); MPV 8.8 fL (7.6-11.3); Monocytes % 6.9 % (3.3-12.3); Platelets 179 thou/uL (152-406); RBC Red Blood Cell Count 4.83 M/uL (4.33-5.43); Red Cell Distribution Width 13.6 % (12.1-15.2)
[2024-05-27 11:47] LABS: PT Prothrombin Time 11.1 SECONDS (9.4-12.5); PTT, Activated Partial Thromb 32.7 SECONDS (24.3-36.9); Protime INR 1.06
--- NOTE | 2024-05-27 11:57 | RAD REPORT ---
EXAMINATION: XR LEFT KNEE CLINICAL INDICATION: PAIN TECHNIQUE: Multiple projections of the left knee were obtained. COMPARISON: No prior exam. FINDINGS: There is moderately severe tricompartmental osteoarthritis, greatest medially. Small supra patellar joint effusion. No fracture seen. Nonemergent MRI follow-up would be suggested.
[2024-05-27] MEDS ORDERED: KETOROLAC 30 MG/ML INJ ONE (13:15)
--- NOTE | 2024-05-27 13:22 | EDPHYS ---
Physician Documentation [facility] Name: Terrell Hoover Age: 69 yrs Sex: Male : 1955 Arrival Date: 05/27/2024 Time: 09:00 Bed 9 Private MD: ED Physician Ken Rolle HPI: 05/27 10:21 This 69 yrs old Male presents to ER via Ambulatory with complaints of knee rn pain. 10:22 The patient presents with pain, that is acute. The complaints affect the left knee. rn 10:22 Onset: The symptoms/episode began/occurred yesterday. Modifying factors: The symptoms rn are alleviated by nothing. the symptoms are aggravated by weight bearing, bending knee. Severity of symptoms: At their worst the symptoms were moderate, in the emergency department the symptoms are unchanged. The patient has not experienced similar symptoms in the past. Patient reports pain in left knee. Began yesterday. No fever or chills. Is diabetic. No IV drug use. Has never happened before. Denies history of gout. No trauma. Hurts to bend knee and walk on it. Believes it is from the cold weather. Denies any other joint pain. No swelling of the knee or warmth. No fever or chills.. Historical: - Allergies: 10:14 No Known Allergies; ap3 - PMHx: 10:14 diabetes mellitus; ap3 - PSHx: 10:14 back surgery; ap3 - Immunization history:: Client reports receiving the 2nd dose of the Covid vaccine. - Infectious Disease History:: Denies. - Social history:: Smoking status: Patient denies any tobacco usage or history of. - Family history:: not pertinent. - Hospitalizations: : No recent hospitalization is reported. ROS: 10:22 Constitutional: Negative for fever, chills, and weight loss, Cardiovascular: Negative rn for chest pain, palpitations, and edema, Respiratory: Negative for shortness of breath, cough, wheezing, and pleuritic chest pain, Abdomen/GI: Negative for abdominal pain, nausea, vomiting, diarrhea, and constipation, Back: Negative for injury and pain, MS/Extremity: Positive for left knee pain Skin: Negative for injury, rash, and discoloration, Neuro: Negative for headache, weakness, numbness, tingling, and seizure, Exam: 10:22 Constitutional: This is a well developed, well nourished patient who is awake, alert, rn and in no acute distress. Cardiovascular: Regular rate and rhythm. No pulse deficits. MS/ Extremity: Pulses equal, no cyanosis. Neurovascular intact. No knee effusion appreciated. No warmth or overlying skin changes. Pain with flexion of the and with ambulation. Pain does not kick in until about 40 degrees of flexion. Vital Signs: 10:11 BP 136 / 91; Pulse 69; Resp 18; Temp 97.8(O); Pulse Ox 98% on R/A; Weight 84.37 kg; ap3 Pain 8/10; 10:11 Pain Scale: Adult ap3 MDM: 09:09 Medical Screening Exam initiated janice 13:20 Differential diagnosis: Arthritis, knee effusion. Data reviewed: vital signs, nurses rn notes, lab test result(s), radiologic studies, plain films, ultrasound, and as a result, I will discharge patient. Counseling: I had a detailed discussion with the patient and/or guardian regarding the historical points, exam findings, and any diagnostic results supporting the discharge/admit diagnosis, lab results, radiology results, the need for outpatient follow up, to return to the emergency department if symptoms worsen or persist or if there are any questions or concerns that arise at home. Special discussion: I discussed with the patient/guardian in detail that at this point there is no indication for admission to the hospital. It is understood, however, that if the symptoms persist or worsen the patient needs to return immediately for re-evaluation. 05/27 10:15 Order name: CBC with Diff; Complete Time: 11:56 rn 05/27 10:15 Order name: Protime (+inr); Complete Time: 11: rn 05/27 10:15 Order name: Ptt, Activated; Complete Time: 11:56 rn 05/27 10:15 Order name: XRAY Knee LEFT 3 view; Complete Time: 11:58 rn 05/27 10:15 Order name: Extremity Venous Uni Ltd US; Complete Time: 11: rn 05/27 10:15 Order name: IV Start; Complete Time: 13:23 rn 05/27 13:20 Order name: Pako wrap-joint; Complete Time: 13:23 rn Administered Medications: 13:23 Drug: Ketorolac IVP 15 mg IVP once Route: IVP; Site: left antecubital; hb Disposition Summary: 05/27/24 13:21 Discharge Ordered Notes: Location: Home rn Problem: new rn Symptoms: have improved rn Condition: Stable rn Diagnosis - Osteoarthritis of knee, unspecified rn - Effusion, left knee rn Followup: rn - With: Private Physician - When: As needed - Reason: Recheck today's complaints, Re-evaluation by your physician Discharge Instructions: - Discharge Summary Sheet rn - Arthritis rn - How to Use a Knee Brace rn - Knee Effusion rn - Osteoarthritis rn Forms: - Medication Reconciliation Form rn - Antibiotic color checker roving or yarn - Prescription Opioid Use rn - Patient Portal Instructions rn - Leadership Thank You Letter rn Prescriptions: - Diclofenac Sodium 75 mg Oral tablet, delayed release (enteric coated) - take 1 tablet ORAL route 2 times per day; 20 tablet; Refills: 0, Product rn Selection Permitted Signatures: Dispatcher [employer] EDMS Dane Paul MD MD cha Nieto, Roman, MD MD rn Baxter, Heather RN RN Nataly Meyers RN RN ap3 Corrections: (The following items were deleted from the chart) 10:15 10:15 CBC+H.LAB.BRZ ordered. EDMS EDMS 10:15 10:15 PROTIME (+INR)+COAG.LAB.BRZ ordered. EDMS EDMS 10:15 10:15 PTT, ACTIVATED+COAG.LAB.BRZ ordered. EDMS EDMS
--- NOTE | 2024-05-27 13:22 | ER ---
Nurse's Notes [facility] Name: Terrell Hoover Age: 69 yrs Sex: Male : 1955 Arrival Date: 05/27/2024 Time: 09:00 Bed 9 Private MD: Diagnosis: Osteoarthritis of knee, unspecified;Effusion, left knee Presentation: 05/27 10:11 Chief complaint: Patient states: his left knee started hurting yesterday. patient ap3 denies any trauma to the area. patient currently rates his pain as an 8/10 on the pain scale. Coronavirus screen: At this time, the client does not indicate any symptoms associated with coronavirus-19. Ebola Screen: No symptoms or risks identified at this time. Initial Sepsis Screen: Does the patient meet any 2 criteria? No. Patient's initial sepsis screen is negative. Does the patient have a suspected source of infection? No. Patient's initial sepsis screen is negative. Risk Assessment: Do you want to hurt yourself or someone else? Patient reports no desire to harm self or others. Onset of symptoms was May 26, 2024. 10:11 Method Of Arrival: Ambulatory ap3 10:11 Acuity: JODRYN 4 ap3 Triage Assessment: 10:14 General: Appears in no apparent distress. Behavior is calm, cooperative, appropriate ap3 for age. Pain: Complains of pain in left knee Pain currently is 8 out of 10 on a pain scale. Aggravated by increased activity. Neuro: Level of Consciousness is awake, alert, obeys commands, Oriented to person, place, time, situation, Appropriate for age. Cardiovascular: Patient's skin is warm and dry. Respiratory: Airway is patent Respiratory effort is even, unlabored, Respiratory pattern is regular, symmetrical. Musculoskeletal: Range of motion: intact in all extremities. Historical: - Allergies: 10:14 No Known Allergies; ap3 - PMHx: 10:14 diabetes mellitus; ap3 - PSHx: 10:14 back surgery; ap3 - Immunization history:: Client reports receiving the 2nd dose of the Covid vaccine. - Infectious Disease History:: Denies. - Social history:: Smoking status: Patient denies any tobacco usage or history of. - Family history:: not pertinent. - Hospitalizations: : No recent hospitalization is reported. Screenin:15 [facility] ED Fall Risk Assessment (Adult) History of falling in the last 3 months, ap3 including since admission No falls in past 3 months (0 pts) Confusion or Disorientation No (0 pts) Intoxicated or Sedated No (0 pts) Impaired Gait No (0 pts) Mobility Assist Device Used No (0 pt) Altered Elimination No (0 pt) Score/Fall Risk Level 0 - 2 = Low Risk Oriented to surroundings, Maintained a safe environment, Educated pt \T\ family on fall prevention, incl call for assistance when getting out of bed, Assessed \T\ reinforced patient's understanding of fall precautions, Hourly rounding (assess needs \T\ fall precautionary measures) done, Used ambulatory aids as needed (educated on \T\ assisted with). Abuse screen: Denies threats or abuse. Nutritional screening: No deficits noted. Tuberculosis screening: No symptoms or risk factors identified. Assessment: 13:00 General: Appears in no apparent distress. Behavior is calm, cooperative. Neuro: Level hb of Consciousness is awake, alert, obeys commands, Oriented to person, place, time, situation. Cardiovascular: Patient's skin is warm and dry. Musculoskeletal: Reports left knee pain. 13:32 Reassessment: Patient appears in no apparent distress at this time. Patient and/or hb family updated on plan of care and expected duration. Pain level reassessed. Patient is alert, oriented x 3, equal unlabored respirations, skin warm/dry/pink. Vital Signs: 10:11 BP 136 / 91; Pulse 69; Resp 18; Temp 97.8(O); Pulse Ox 98% on R/A; Weight 84.37 kg; ap3 Pain 8/10; 10:11 Pain Scale: Adult ap3 ED Course: 09:06 Patient arrived in ED. cj3 09:09 Dane Paul MD is Attending Physician. janice 09:09 Attending Physician role handed off by Dane Paul MD rn 09:09 Ken Rolle MD is Attending Physician. rn 10:14 Triage completed. ap3 10:15 Arm band placed on right wrist. ap3 10:55 XRAY Knee LEFT 3 view In Process Unspecified. EDMS 10:55 Extremity Venous Uni Ltd US In Process Unspecified. EDMS 13:33 No provider procedures requiring assistance completed. IV discontinued, intact, hb bleeding controlled, No redness/swelling at site. Pressure dressing applied. Administered Medications: 13:23 Drug: Ketorolac IVP 15 mg IVP once Route: IVP; Site: left antecubital; hb Outcome: 13:21 Discharge ordered by . rn 13:33 Discharged to home ambulatory, 13:33 Condition: stable :33 Discharge instructions given to patient, Instructed on discharge instructions, follow up and referral plans. medication usage, Demonstrated understanding of instructions, follow-up care, medications, Prescriptions given X 1, :33 Patient left the ED. hb Signatures: Dispatcher [employer] EDMS Dane Paul MD MD cha Nieto, Roman, MD MD rn Baxter, Heather, RN RN hb Prokisch, Amanda, RN RN ap3 Nati Upton 3
[2024-05-28 05:22] VITALS: BP 136/91; TEMP 97.8; O2SAT 98
== END 2024-05-27 13:33 | disposition home or self-care (01) ==
LOC: ER 09:00
DX: M17.12 Unilateral primary osteoarthritis, left knee (principal); M25.462 Effusion, left knee
CPT/HCPCS: 36415; 85025; 85610; 85730; 93971; 96374; 99284